=== PATIENT | male | born 1940 | race Caucasian/White ===

== ENCOUNTER 2017-09-01 05:59 | Inpatient (IN) | payer MEDICARE, OTHER ==
[~2017-09-01] VITALS: Ht 167.6 cm; Wt 64.4 kg
[~2017-09-01 05:59] MED LIST: ASPIRIN81 MG ORAL; CLONIDINE 0.2M0.2 MG PO; DIABETA5 MG ORAL; LISINOPRIL10 MG ORAL; METFORMIN HCL500 M1 ORAL; METFORMIN HCL850 M1 ORAL
--- NOTE | 2017-09-01 06:17 | Emergency Room Report ---
History of Present Illness General Chief Complaint: Dizziness Source: Patient Present Illness HPI Is a 77-year-old male with a history diabetes. He woke up this morning complaining of dizziness and lightheadedness. No nausea no vomiting. No fever or chills. Also with generalize weakness. This is new to him. Denies any other complaint. History is difficult because he is a poor historian. Per his , patient has fever has been coughing for about a week. Worse tonight. Very weak. Allergies: Coded Allergies: PENICILLIN G (Verified Allergy, Mild, 12/26/10) Patient History Past Medical History: see triage record, old chart reviewed, DM Past Surgical History: other Pertinent Family History: none Social History: Denies: smoking Immunizations: other Reviewed Nursing Documentation: PMH: Agreed, PSxH: Agreed Nursing Documentation-PMH Hx Cardiac Problems: Yes Hx Hypertension: Yes Hx Diabetes: Yes Hx Cancer: No Hx Gastrointestinal Problems: Yes Hx Neurological Problems: No Review of Systems Eye: Denies: eye pain, blurred vision ENT: Denies: ear pain, nose congestion, throat swelling Respiratory: Reports: cough, shortness of breath Cardiovascular: Denies: chest pain, palpitations Gastrointestinal: Denies: abdominal pain, diarrhea, nausea, vomiting Musculoskeletal: Denies: back pain, joint pain Skin: Denies: rash Neurological: Reports: dizziness, Denies: headache, numbness Endocrine: Denies: increased thirst, increased urine Hematologic/Lymphatic: Denies: easy bruising All Other Systems: negative except mentioned in HPI Physical Exam Vital Signs Date Time Temp Pulse Resp B/P (MAP) Pulse Ox O2 Delivery O2 Flow Rate FiO2 09/01/17 06:07 99.7 104 18 190/87 92 Room Air vitals with tachycardia Sp02 EP Interpretation: abnormal General Appearance: mild distress, other - Appeared weak Head: normocephalic, atraumatic Eyes: bilateral eye PERRL, bilateral eye EOMI ENT: hearing grossly normal, normal pharynx Neck: full range of motion, supple, no meningismus Respiratory: chest non-tender, crackles Cardiovascular #1: regular rate, rhythm, no murmur Gastrointestinal: normal bowel sounds, non tender, no mass, no organomegaly, no bruit, non-distended Musculoskeletal: back normal, normal range of motion Psychiatric: mood/affect normal Skin: warm/dry Medical Decision Making Diagnostic Impression: Primary Impression: Sepsis Qualified Codes: A41.9 - Sepsis, unspecified organism Additional Impressions: Encephalopathy acute Pneumonia Qualified Codes: J18.1 - Lobar pneumonia, unspecified organism ER Course Patient presents with weakness, cough, fever and chest x-ray concerning for pneumonia. Antibiotics given. Labs pending. I will sign this patient out to Dr. Montgomery for final disposition. Most likely admission versus transfer. EKG Diagnostic Results Rate: normal, tachycardiac Rhythm: NSR ST Segments: no acute changes Rhythm Strip Diag. Results Rhythm Strip Time: 06:28 EP Interpretation: yes Rate: 100 Rhythm: NSR, no PVC's, no ectopy Chest X-Ray Diagnostic Results Chest X-Ray Diagnostic Results : Chest X-Ray Ordered: Yes # of Views/Limited/Complete: 1 View Indication: Shortness of Breath EP Interpretation: Yes Interpretation: no effusion, no pneumothorax, other - Increased interstitial markings Impression: Other - Interstitial infiltrate Electronically Signed by: Electronically signed by Maninder Issa MD Last Vital Signs Date Time Temp Pulse Resp B/P (MAP) Pulse Ox O2 Delivery O2 Flow Rate FiO2 09/01/17 06:07 99.7 104 18 190/87 92 Room Air Status: improved Disposition: ADMITTED INPATIENT Condition: Serious MANINDER ISSA M.D. Sep 01, 2017 06:17
[2017-09-01] MEDS ORDERED: Acetaminophen 500mg (ES) tab ORAL ONE (06:30)
[2017-09-01] MEDS ORDERED: NS 1000ml 1,900 ML IVLG ONE (06:30)
[2017-09-01 06:32] VITALS: BP 167/69
[2017-09-01] MEDS ORDERED: cefTRIAXone 1 GM in NS 55 ML IVPB ONE (06:45)
[2017-09-01] MEDS ORDERED: Azithromycin 500 MG in NS 275 ML IV ONE (06:45)
[2017-09-01 07:09] LABS: PROTHROMBIN TIME 10.9 SEC (9.30-11.50)
[2017-09-01 07:10] LABS: MEAN CORPUSCULAR HGB CONC 33.8 G/DL (32.0-36.0); MEAN CORPUSCULAR VOLUME 98 FL (80-99); PLATELET COUNT 242 K/UL (150-450); RED BLOOD COUNT 4.27 M/UL (4.70-6.10); RED CELL DISTRIBUTION WIDTH 12.4 % (11.6-14.8)
[2017-09-01 07:30] LABS: ALANINE AMINOTRANSFERASE 18 U/L (12-78); ALBUMIN/GLOBULIN RATIO 1.1 (1.0-2.7); ANION GAP 11 (5-15); ASPARTATE AMINO TRANSFERASE 18 U/L (15-37); CALCIUM 9.8 MG/DL (8.5-10.1); CARBON DIOXIDE 25 MMOL/L (21-32); CHLORIDE 101 MMOL/L (98-107); CREATININE 2.3 MG/DL (0.55-1.30); POTASSIUM 4.6 MMOL/L (3.5-5.1); SODIUM 137 MMOL/L (136-145); TOTAL PROTEIN 8.2 G/DL (6.4-8.2)
[2017-09-01] MEDS ORDERED: JANUVIA50 MG ORAL (07:35)
[2017-09-01] MEDS ORDERED: GLIPIZIDE XL10 MG ORAL (07:35)
[2017-09-01 07:43] LABS: APPEARANCE,URINE CLEAR; KETONES,URINE NEGATIVE (NEGATIVE); LEUKOCYTE ESTERASE ,URINE NEGATIVE (NEGATIVE); NITRITE,URINE NEGATIVE (NEGATIVE); PH,URINE 7 (4.5-8.0); PROTEIN,URINE 3+ (NEGATIVE); UROBILINOGEN,URINE NORMAL MG/DL (0.0-1.0)
[2017-09-01] MEDS ORDERED: Azithromycin 500mg Inj IV ONE (07:50)
[2017-09-01 07:54] LABS: BACTERIA,URINE FEW /HPF; SQUAMOUS EPITHELIAL CELL,UR OCCASIONAL /LPF (NONE/OCC); WBC,URINE 0-2 /HPF (0 - 0)
[2017-09-01] MEDS ORDERED: Azithromycin 500 MG in D5W 275 ML IV ONE (08:00)
[2017-09-01 08:01] LABS: BAND NEUTROPHILS % (MANUAL) 5 % (0-8); BASOPHILS % (MANUAL) 0 % (0-2); EOSINOPHILS % (MANUAL) 0 % (0-3); LYMPHOCYTES % (MANUAL) 2 % (20-45); NEUTROPHILS % (MANUAL) 92 % (45-75); PLATELET ESTIMATE ADEQUATE; PLATELET MORPHOLOGY NORMAL; TOTAL CELLS COUNTED 100
[2017-09-01 08:09] VITALS: BP 109/67
[2017-09-01] MEDS ORDERED: Miralax 17gm pkt ORAL PRN ×2 (08:15→15:30)
[2017-09-01] MEDS ORDERED: Promethazine/Codeine 5ml UD ORAL PRN ×2 (08:15→16:15)
[2017-09-01] MEDS ORDERED: Morphine Sulfate 4mg/ml Inj IVP PRN ×2 (08:15→16:15)
[2017-09-01] MEDS ORDERED: Albuterol/Ipratropium 3ml neb HHN PRN ×2 (08:15→16:15)
[2017-09-01] MEDS ORDERED: LORazepam Inj 2mg/ml 1ml IV PRN ×2 (08:15→16:15)
--- NOTE | 2017-09-01 08:17 | Emergency Room Report ---
History of Present Illness General Chief Complaint: Dizziness Source: Patient Present Illness Allergies: Coded Allergies: PENICILLIN G (Verified Allergy, Mild, 12/26/10) Nursing Documentation-PMH Hx Cardiac Problems: Yes Hx Hypertension: Yes Hx Diabetes: Yes Hx Cancer: No Hx Gastrointestinal Problems: Yes Hx Neurological Problems: No Physical Exam Vital Signs Date Time Temp Pulse Resp B/P (MAP) Pulse Ox O2 Delivery O2 Flow Rate FiO2 09/01/17 06:07 99.7 104 18 190/87 92 Room Air Medical Decision Making Diagnostic Impression: Primary Impression: Pneumonia Qualified Codes: J18.1 - Lobar pneumonia, unspecified organism Additional Impressions: Sepsis Qualified Codes: A41.9 - Sepsis, unspecified organism Hypoxia ER Course Patient presents with reports as noted on initial history and exam by initial provider At this time patient feel significantly improved Patient was hypoxic upon presentation and requires oxygenation Blood work reveals high white blood cell count x-ray does not show any obvious large infiltrate however clinically the patient does present with sepsis and pneumonia Patient was provided with antibiotics and requires further inpatient care Labs Test 09/01/17 06:50 09/01/17 07:24 White Blood Count 16.0 K/UL (4.8-10.8) Red Blood Count 4.27 M/UL (4.70-6.10) Hemoglobin 14.1 G/DL (14.2-18.0) Hematocrit 41.6 % (42.0-52.0) Mean Corpuscular Volume 98 FL (80-99) Mean Corpuscular Hemoglobin 33.0 PG (27.0-31.0) Mean Corpuscular Hemoglobin Concent 33.8 G/DL (32.0-36.0) Red Cell Distribution Width 12.4 % (11.6-14.8) Platelet Count 242 K/UL (150-450) Mean Platelet Volume 11.0 FL (6.5-10.1) Neutrophils (%) (Auto) % (45.0-75.0) Lymphocytes (%) (Auto) % (20.0-45.0) Monocytes (%) (Auto) % (1.0-10.0) Eosinophils (%) (Auto) % (0.0-3.0) Basophils (%) (Auto) % (0.0-2.0) Differential Total Cells Counted 100 Neutrophils % (Manual) 92 % (45-75) Lymphocytes % (Manual) 2 % (20-45) Monocytes % (Manual) 1 % (1-10) Eosinophils % (Manual) 0 % (0-3) Basophils % (Manual) 0 % (0-2) Band Neutrophils 5 % (0-8) Platelet Estimate Adequate Platelet Morphology Normal Red Blood Cell Morphology Normal Prothrombin Time 10.9 SEC (9.30-11.50) Prothromb Time International Ratio 1.0 (0.9-1.1) Activated Partial Thromboplast Time 23 SEC (23-33) Sodium Level 137 MMOL/L (136-145) Potassium Level 4.6 MMOL/L (3.5-5.1) Chloride Level 101 MMOL/L (98-107) Carbon Dioxide Level 25 MMOL/L (21-32) Anion Gap 11 (5-15) Blood Urea Nitrogen 42 mg/dL (7-18) Creatinine 2.3 MG/DL (0.55-1.30) Estimat Glomerular Filtration Rate mL/min (>60) Glucose Level 231 MG/DL (74-106) Calcium Level 9.8 MG/DL (8.5-10.1) Total Bilirubin 0.5 MG/DL (0.2-1.0) Aspartate Amino Transf (AST/SGOT) 18 U/L (15-37) Alanine Aminotransferase (ALT/SGPT) 18 U/L (12-78) Alkaline Phosphatase 94 U/L (46-116) Total Creatine Kinase 73 U/L (26-308) Creatine Kinase MB 1.0 NG/ML (0.0-3.6) Creatine Kinase MB Relative Index 1.3 Troponin I 0.000 ng/mL (0.000-0.056) Pro-B-Type Natriuretic Peptide 735 (0-125) Total Protein 8.2 G/DL (6.4-8.2) Albumin 4.3 G/DL (3.4-5.0) Globulin 3.9 g/dL Albumin/Globulin Ratio 1.1 (1.0-2.7) Urine Color Pale yellow Urine Appearance Clear Urine pH 7 (4.5-8.0) Urine Specific [place] 1.005 (1.005-1.035) Urine Protein 3+ (NEGATIVE) Urine Glucose (UA) 2+ (NEGATIVE) Urine Ketones Negative (NEGATIVE) Urine Occult Blood 1+ (NEGATIVE) Urine Nitrite Negative (NEGATIVE) Urine Bilirubin Negative (NEGATIVE) Urine Urobilinogen Normal MG/DL (0.0-1.0) Urine Leukocyte Esterase Negative (NEGATIVE) Urine RBC 2-4 /HPF (0 - 0) Urine WBC 0-2 /HPF (0 - 0) Urine Squamous Epithelial Cells Occasional /LPF Urine Bacteria Few /HPF (NONE) Rhythm Strip Diag. Results EP Interpretation: yes Rate: 88 Rhythm: NSR, no PVC's, no ectopy Chest X-Ray Diagnostic Results Chest X-Ray Diagnostic Results : Chest X-Ray Ordered: Yes # of Views/Limited/Complete: 1 View Indication: Chest Pain EP Interpretation: Yes Interpretation: no consolidation, no pneumothorax, other - Small parahilar markings, right lower lobe small effusion Impression: Other - ssmall effusion right-sided Last Vital Signs Date Time Temp Pulse Resp B/P (MAP) Pulse Ox O2 Delivery O2 Flow Rate FiO2 09/01/17 08:09 100.2 82 20 109/67 94 Room Air Status: improved Disposition: ADMITTED INPATIENT Condition: Serious Referrals: NOT CHOSEN REBEKAH/,REFERRING (PCP) INA JAMES D.O. Sep 01, 2017 08:17
--- NOTE | 2017-09-01 08:47 | Diagnostic Imaging Report ---
Indication: DIZZY Comparison: 11/20/2012 CT brain Technique: Contiguous helical CT images of the brain was performed with [address] dose: Total DLP: 1354 mGycm; CTDI volume: 70.4 mGy Findings: There is no acute intracranial hemorrhage or infarct. No mass, mass effect or midline shift identified. Ventricles and sulci are prominent secondary to global cortical atrophy. There are no extra-axial fluid collections seen. Periventricular chronic ischemic changes are noted. Bony calvarium is intact. Mastoid air cells and visualized paranasal sinuses are clear. 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 Impression: 1. No acute intracranial abnormalities. 2. Global cortical atrophy with periventricular chronic ischemic changes. 3. No significant change from prior exam 11/20/[address] scanner at [facility] is accredited by the [employer] and the scans are performed using protocols designed to limit radiation exposure to as low as reasonably achievable to attain images of sufficient resolution adequate for diagnostic evaluation.
--- NOTE | 2017-09-01 08:48 | Diagnostic Imaging Report ---
Indication: DIZZY Comparison: 01/31/2010 Findings: Single view of the chest shows a normal cardiomediastinal silhouette. Pulmonary vasculature is normal. Lung are clear. Soft tissues and osseous structures are within normal limits. Impression: No acute chest disease
[2017-09-01] MEDS ORDERED: Aspirin Baby 81mg ORAL SCH (09:00)
[2017-09-01] MEDS ORDERED: Heparin 5000 units/ml inj SUBQ SCH (09:00)
--- NOTE | 2017-09-01 09:17 | Infectious Diseases Prog Note ---
Assessment/Plan Problems: (1) Pneumonia Assessment & Plan: possible aspiration , will start ceftaroline, aztreonam and flagyl, and screen for influenza, monitor CXR (2) Sepsis Assessment & Plan: due to the above , send blood culture, continue antibiotics (3) Hypoxia Assessment & Plan: not explained by his CXR , need to rule out other causes, such as PE, pulmonary is following Subjective Allergies: Coded Allergies: PENICILLIN G (Verified Allergy, Mild, 12/26/10) Objective Vital Signs Last 24 Hour Vital Signs Date Time Temp Pulse Resp B/P (MAP) Pulse Ox O2 Delivery O2 Flow Rate FiO2 09/01/17 09:02 88 20 109/55 93 Nasal Cannula 3.0 09/01/17 08:09 100.2 82 20 109/67 94 Room Air 09/01/17 07:52 100.2 09/01/17 06:32 100.1 94 18 167/69 92 Room Air 09/01/17 06:07 99.7 104 18 190/87 92 Room Air Height (Feet): 5 Height (Inches): 6.00 Weight (Pounds): 142 Laboratory Tests Test 09/01/17 06:50 09/01/17 07:24 White Blood Count 16.0 K/UL (4.8-10.8) H Red Blood Count 4.27 M/UL (4.70-6.10) L Hemoglobin 14.1 G/DL (14.2-18.0) L Hematocrit 41.6 % (42.0-52.0) L Mean Corpuscular Volume 98 FL (80-99) Mean Corpuscular Hemoglobin 33.0 PG (27.0-31.0) H Mean Corpuscular Hemoglobin Concent 33.8 G/DL (32.0-36.0) Red Cell Distribution Width 12.4 % (11.6-14.8) Platelet Count 242 K/UL (150-450) Mean Platelet Volume 11.0 FL (6.5-10.1) H Neutrophils (%) (Auto) % (45.0-75.0) Lymphocytes (%) (Auto) % (20.0-45.0) Monocytes (%) (Auto) % (1.0-10.0) Eosinophils (%) (Auto) % (0.0-3.0) Basophils (%) (Auto) % (0.0-2.0) Differential Total Cells Counted 100 Neutrophils % (Manual) 92 % (45-75) H Lymphocytes % (Manual) 2 % (20-45) L Monocytes % (Manual) 1 % (1-10) Eosinophils % (Manual) 0 % (0-3) Basophils % (Manual) 0 % (0-2) Band Neutrophils 5 % (0-8) Platelet Estimate Adequate Platelet Morphology Normal Red Blood Cell Morphology Normal Prothrombin Time 10.9 SEC (9.30-11.50) Prothromb Time International Ratio 1.0 (0.9-1.1) Activated Partial Thromboplast Time 23 SEC (23-33) Sodium Level 137 MMOL/L (136-145) Potassium Level 4.6 MMOL/L (3.5-5.1) Chloride Level 101 MMOL/L (98-107) Carbon Dioxide Level 25 MMOL/L (21-32) Anion Gap 11 (5-15) Blood Urea Nitrogen 42 mg/dL (7-18) H Creatinine 2.3 MG/DL (0.55-1.30) H Estimat Glomerular Filtration Rate mL/min (>60) Glucose Level 231 MG/DL (74-106) H Calcium Level 9.8 MG/DL (8.5-10.1) Total Bilirubin 0.5 MG/DL (0.2-1.0) Aspartate Amino Transf (AST/SGOT) 18 U/L (15-37) Alanine Aminotransferase (ALT/SGPT) 18 U/L (12-78) Alkaline Phosphatase 94 U/L (46-116) Total Creatine Kinase 73 U/L (26-308) Creatine Kinase MB 1.0 NG/ML (0.0-3.6) Creatine Kinase MB Relative Index 1.3 Troponin I 0.000 ng/mL (0.000-0.056) Pro-B-Type Natriuretic Peptide 735 (0-125) H Total Protein 8.2 G/DL (6.4-8.2) Albumin 4.3 G/DL (3.4-5.0) Globulin 3.9 g/dL Albumin/Globulin Ratio 1.1 (1.0-2.7) Urine Color Pale yellow Urine Appearance Clear Urine pH 7 (4.5-8.0) Urine Specific [place] 1.005 (1.005-1.035) Urine Protein 3+ (NEGATIVE) H Urine Glucose (UA) 2+ (NEGATIVE) H Urine Ketones Negative (NEGATIVE) Urine Occult Blood 1+ (NEGATIVE) H Urine Nitrite Negative (NEGATIVE) Urine Bilirubin Negative (NEGATIVE) Urine Urobilinogen Normal MG/DL (0.0-1.0) Urine Leukocyte Esterase Negative (NEGATIVE) Urine RBC 2-4 /HPF (0 - 0) H Urine WBC 0-2 /HPF (0 - 0) Urine Squamous Epithelial Cells Occasional /LPF Urine Bacteria Few /HPF (NONE) Current Medications Medications (Trade) Dose Ordered Sig/Reuben Route PRN Reason Start Time Stop Time Status Last Admin Dose Admin Acetaminophen (Tylenol) 650 mg Q4H PRN ORAL FEVER 09/01/17 08:15 10/01/17 08:14 Albuterol/ Ipratropium (DuoNeb 0.5-3(2.5)mg/3ml) 3 ml Q4H PRN HHN Shortness of Breath 09/01/17 08:15 09/06/17 08:14 Aspirin (ASA) 81 mg DAILY ORAL 09/01/17 09:00 10/01/17 08:59 Azithromycin (Zithromax) 250 mg DAILY ORAL 09/02/17 09:00 09/09/17 08:59 UNV Ceftriaxone Sodium 2 gm/ Dextrose 110 ml @ 220 mls/hr Q24H IVPB 09/01/17 09:15 09/08/17 09:14 UNV Dextrose (Dextrose 50%) STAT PRN IV Hypoglycemia 09/01/17 08:15 10/01/17 08:14 Dextrose (Dextrose 50%) STAT PRN IV Hypoglycemia 09/01/17 08:15 10/01/17 08:14 Heparin Sodium (Porcine) (Heparin 5000 units/ml) 5,000 units EVERY 12 HOURS SUBQ 09/01/17 09:00 10/01/17 08:59 Insulin Aspart (NovoLOG) BEFORE MEALS AND HS SUBQ 09/01/17 11:30 10/01/17 11:29 Lorazepam (Ativan 2mg/ml 1ml) 2 mg Q2H PRN IV For Anxiety 09/01/17 08:15 09/08/17 08:14 Morphine Sulfate (Morphine Sulfate) 4 mg Q4H PRN IVP Severe Pain (Pain Scale 7-10) 09/01/17 08:15 09/08/17 08:14 Ondansetron HCl (Zofran) 4 mg Q6H PRN IVP Nausea & Vomiting 09/01/17 08:15 10/01/17 08:14 Polyethylene Glycol (Miralax) 17 gm DAILYPRN PRN ORAL Constipation 09/01/17 08:15 10/01/17 08:14 Promethazine HCl/ Codeine (Phenergan with Codeine) 5 ml Q4H PRN ORAL For Cough 09/01/17 08:15 10/01/17 08:14 Sitagliptin Phosphate (Januvia) 50 mg BIAC ORAL 09/01/17 16:30 10/01/17 16:29 Sodium Chloride 1,000 ml @ 50 mls/hr Q20H IV 09/01/17 09:00 10/01/17 08:59 Viktor Holland M.D. Sep 01, 2017 09:17
[2017-09-01] MEDS ORDERED: cefTRIAXone 2 GM in D5W 110 ML IVPB SCH (10:00)
[2017-09-01] MEDS ORDERED: Vancomycin 1 GM in D5W 275 ML IVPB ONE (10:00)
[2017-09-01 10:12] LABS: ABG BASE EXCESS -3.6; ABG PCO2 41.7 mmHg (35.0-45.0)
[2017-09-01 10:13] LABS: ABG ALLEN TEST POSITIVE
[2017-09-01 10:29] LABS: URIC ACID 7.3 MG/DL (2.6-7.2)
--- NOTE | 2017-09-01 10:56 | Consultation ---
History of Present Illness General Date patient seen: Sep 01, 2017 Time patient seen: 10:00 Chief Complaint: Dizziness Referring physician: dr Banegas Reason for Consultation: pulmonary consult Present Illness HPI 77-year-old male with PMH of DM, HTN woke up this am with dizziness, generalized weakness and lightheadedness, denied n/v/ denied f/c/ upon evaluation in ED found to ne hypoxemic, febrile, with leukocytosis troponin negative ECG with NSR no acute ischemic changes pro BNP -735 UA negative CXR revealed no acute CP pathology BP was elevated -190/87 CT head subsequently done, no acute intracranial pathology BS was stable BUN/creat- 42/2.3 respectively on clinical examination with evidence of possible PNA patient was admitted for further management on MS flooe sustained episode of respiratory distress, desaturation, was placed on 100% NRM and was subsequently transferred to [facility] Allergies: Coded Allergies: PENICILLIN G (Verified Allergy, Mild, 12/26/10) Medication History Scheduled Aspirin* (Aspirin*), 81 MG ORAL DAILY, (Reported) Clonidine HCl (Clonidine HCl), 0.2 MG PO TID, (Reported) Glipizide (Glipizide), 5 MG ORAL TWICE A DAY, (Reported) Glyburide* (Diabeta*), 5 MG ORAL BIAC, (Reported) Lisinopril* (Lisinopril*), 10 MG ORAL DAILY, (Reported) Metformin Hcl* (Metformin Hcl*), 500 MG ORAL THREE TIMES A DAY, (Reported) Sitagliptin (Januvia), 50 MG ORAL TWICE A DAY, (Reported) Patient History Healthcare decision maker Resuscitation status Advanced Directive on File Past Medical/Surgical History Past Medical/Surgical History: (1) Diabetes (2) HTN (hypertension) Review of Systems Constitutional: Reports: weakness Eye: Reports: no symptoms ENT: Reports: no symptoms Respiratory: Reports: see HPI Cardiovascular: Reports: no symptoms, other - HTN Gastrointestinal: Reports: no symptoms Genitourinary: Reports: no symptoms Musculoskeletal: Reports: no symptoms Skin: Reports: no symptoms Psychiatric: Reports: no symptoms Neurological: Reports: see HPI, other Endocrine: Reports: other - diabetes Hematologic/Lymphatic: Reports: no symptoms Physical Exam General Appearance: no apparent distress, alert - awake, responsive Lines, tubes and drains: peripheral HEENT: normocephalic, atraumatic, anicteric, mucous membranes moist Neck: non-tender, supple Respiratory/Chest: no accessory muscle use, other - coarse BS Cardiovascular/Chest: normal peripheral pulses, normal rate, regular rhythm, no JVD Abdomen: normal bowel sounds, non tender, soft Neurologic: no motor/sensory deficits, alert, responsive, normal mood/affect Musculoskeletal: normal muscle bulk Last 24 Hour Vital Signs Date Time Temp Pulse Resp B/P (MAP) Pulse Ox O2 Delivery O2 Flow Rate FiO2 09/01/17 09:02 88 20 109/55 93 Nasal Cannula 3.0 09/01/17 08:09 100.2 82 20 109/67 94 Room Air 09/01/17 07:52 100.2 09/01/17 06:32 100.1 94 18 167/69 92 Room Air 09/01/17 06:07 99.7 104 18 190/87 92 Room Air Intake and Output 09/01/17 09/02/17 19:00 07:00 Intake Total 2330 ml Balance 2330 ml IV Total 2330 ml # Voids 1 Laboratory Tests Test 09/01/17 06:50 09/01/17 07:24 09/01/17 09:30 09/01/17 09:52 White Blood Count 16.0 K/UL (4.8-10.8) H Red Blood Count 4.27 M/UL (4.70-6.10) L Hemoglobin 14.1 G/DL (14.2-18.0) L Hematocrit 41.6 % (42.0-52.0) L Mean Corpuscular Volume 98 FL (80-99) Mean Corpuscular Hemoglobin 33.0 PG (27.0-31.0) H Mean Corpuscular Hemoglobin Concent 33.8 G/DL (32.0-36.0) Red Cell Distribution Width 12.4 % (11.6-14.8) Platelet Count 242 K/UL (150-450) Mean Platelet Volume 11.0 FL (6.5-10.1) H Neutrophils (%) (Auto) % (45.0-75.0) Lymphocytes (%) (Auto) % (20.0-45.0) Monocytes (%) (Auto) % (1.0-10.0) Eosinophils (%) (Auto) % (0.0-3.0) Basophils (%) (Auto) % (0.0-2.0) Differential Total Cells Counted 100 Neutrophils % (Manual) 92 % (45-75) H Lymphocytes % (Manual) 2 % (20-45) L Monocytes % (Manual) 1 % (1-10) Eosinophils % (Manual) 0 % (0-3) Basophils % (Manual) 0 % (0-2) Band Neutrophils 5 % (0-8) Platelet Estimate Adequate Platelet Morphology Normal Red Blood Cell Morphology Normal Prothrombin Time 10.9 SEC (9.30-11.50) Prothromb Time International Ratio 1.0 (0.9-1.1) Activated Partial Thromboplast Time 23 SEC (23-33) Sodium Level 137 MMOL/L (136-145) Potassium Level 4.6 MMOL/L (3.5-5.1) Chloride Level 101 MMOL/L (98-107) Carbon Dioxide Level 25 MMOL/L (21-32) Anion Gap 11 (5-15) Blood Urea Nitrogen 42 mg/dL (7-18) H Creatinine 2.3 MG/DL (0.55-1.30) H Estimat Glomerular Filtration Rate mL/min (>60) Glucose Level 231 MG/DL (74-106) H Calcium Level 9.8 MG/DL (8.5-10.1) Total Bilirubin 0.5 MG/DL (0.2-1.0) Aspartate Amino Transf (AST/SGOT) 18 U/L (15-37) Alanine Aminotransferase (ALT/SGPT) 18 U/L (12-78) Alkaline Phosphatase 94 U/L (46-116) Total Creatine Kinase 73 U/L (26-308) 77 U/L (26-308) Creatine Kinase MB 1.0 NG/ML (0.0-3.6) Creatine Kinase MB Relative Index 1.3 Troponin I 0.000 ng/mL (0.000-0.056) Pro-B-Type Natriuretic Peptide 735 (0-125) H Total Protein 8.2 G/DL (6.4-8.2) Albumin 4.3 G/DL (3.4-5.0) Globulin 3.9 g/dL Albumin/Globulin Ratio 1.1 (1.0-2.7) Urine Color Pale yellow Urine Appearance Clear Urine pH 7 (4.5-8.0) Urine Specific [place] 1.005 (1.005-1.035) Urine Protein 3+ (NEGATIVE) H Urine Glucose (UA) 2+ (NEGATIVE) H Urine Ketones Negative (NEGATIVE) Urine Occult Blood 1+ (NEGATIVE) H Urine Nitrite Negative (NEGATIVE) Urine Bilirubin Negative (NEGATIVE) Urine Urobilinogen Normal MG/DL (0.0-1.0) Urine Leukocyte Esterase Negative (NEGATIVE) Urine RBC 2-4 /HPF (0 - 0) H Urine WBC 0-2 /HPF (0 - 0) Urine Squamous Epithelial Cells Occasional /LPF Urine Bacteria Few /HPF (NONE) Lactic Acid Level 0.80 mmol/L (0.66-2.22) Uric Acid 7.3 MG/DL (2.6-7.2) H Arterial Blood pH 7.330 (7.350-7.450) Arterial Blood Partial Pressure CO2 41.7 mmHg (35.0-45.0) Arterial Blood Partial Pressure O2 162.2 mmHg (75.0-100.0) H Arterial Blood HCO3 21.9 mmol/L (22.0-26.0) L Arterial Blood Oxygen Saturation 98.0 % (92.0-98.0) Arterial Blood Base Excess -3.6 Hiram Test Positive Height (Feet): 5 Height (Inches): 6.00 Weight (Pounds): 142 Medications Current Medications Medications (Trade) Dose Ordered Sig/Reuben Route PRN Reason Start Time Stop Time Status Last Admin Dose Admin Acetaminophen (Tylenol) 650 mg Q4H PRN ORAL FEVER 09/01/17 08:15 10/01/17 08:14 Albuterol/ Ipratropium (DuoNeb 0.5-3(2.5)mg/3ml) 3 ml Q4H PRN HHN Shortness of Breath 09/01/17 08:15 09/06/17 08:14 Albuterol/ Ipratropium (DuoNeb 0.5-3(2.5)mg/3ml) 3 ml Q6HRT HHN 09/01/17 13:00 09/06/17 12:59 Aspirin (ASA) 81 mg DAILY ORAL 09/01/17 09:00 10/01/17 08:59 Azithromycin (Zithromax) 250 mg DAILY ORAL 09/02/17 09:00 09/09/17 08:59 Ceftriaxone Sodium 2 gm/ Dextrose 110 ml @ 220 mls/hr Q24H IVPB 09/01/17 10:00 09/08/17 09:59 Dextrose (Dextrose 50%) STAT PRN IV Hypoglycemia 09/01/17 08:15 10/01/17 08:14 Dextrose (Dextrose 50%) STAT PRN IV Hypoglycemia 09/01/17 08:15 10/01/17 08:14 Heparin Sodium (Porcine) (Heparin 5000 units/ml) 5,000 units EVERY 12 HOURS SUBQ 09/01/17 09:00 10/01/17 08:59 Insulin Aspart (NovoLOG) BEFORE MEALS AND HS SUBQ 09/01/17 11:30 10/01/17 11:29 Lorazepam (Ativan 2mg/ml 1ml) 2 mg Q2H PRN IV For Anxiety 09/01/17 08:15 09/08/17 08:14 Morphine Sulfate (Morphine Sulfate) 4 mg Q4H PRN IVP Severe Pain (Pain Scale 7-10) 09/01/17 08:15 09/08/17 08:14 Ondansetron HCl (Zofran) 4 mg Q6H PRN IVP Nausea & Vomiting 09/01/17 08:15 10/01/17 08:14 Polyethylene Glycol (Miralax) 17 gm DAILYPRN PRN ORAL Constipation 09/01/17 08:15 10/01/17 08:14 Promethazine HCl/ Codeine (Phenergan with Codeine) 5 ml Q4H PRN ORAL For Cough 09/01/17 08:15 10/01/17 08:14 Sitagliptin Phosphate (Januvia) 50 mg BIAC ORAL 09/01/17 16:30 10/01/17 16:29 Sodium Chloride 1,000 ml @ 50 mls/hr Q20H IV 09/01/17 09:00 10/01/17 08:59 Assessment/Plan Assessment/Plan ASSESSMENT possible sepsis acute hypoxemic respiratory failure requiring NRM likely aspiration PNA ARF DM HTN dizziness PLAN OF CARE transfer to [facility] initially, now in tele O2 to keep sat above 92% was able to downgrade from NRM to O2 via NC, pulse oximetry stable pulmonary toilet: HHN ATC and prn and CPT empiric abx for aspiration PNA ( discussed with ID) fup with cx ABG ( done on 100% NRM), - no hypercapnia fu with CXR in am swallow eval in am IVF renal US, monitor renal parameters, lytes, avoid nephrotoxics BS management with Januvia ( patient declined SSI), check HgA1c DVT GI prophylaxis dizziness ? 2 to elevated BP vs infection? CT head negative, BS stable consider neuro eval-per PMD discretion case discussed and evaluated by supervising physician Jose Parra),Umu COLLINS Sep 01, 2017 10:56
[2017-09-01] MEDS ORDERED: NovoLOG Insulin Flexpen SUBQ SCH (11:30)
[2017-09-01 12:00] VITALS: BP 108/62
[2017-09-01] MEDS ORDERED: Ceftaroline 300 MG in NS 55 ML IVPB SCH (12:00)
[2017-09-01 12:03] LABS: APPEARANCE,URINE CLEAR; KETONES,URINE NEGATIVE (NEGATIVE); LEUKOCYTE ESTERASE ,URINE NEGATIVE (NEGATIVE); NITRITE,URINE NEGATIVE (NEGATIVE); PH,URINE 6 (4.5-8.0); PROTEIN,URINE 3+ (NEGATIVE); UROBILINOGEN,URINE NORMAL MG/DL (0.0-1.0)
[2017-09-01 12:20] LABS: BACTERIA,URINE OCCASIONAL /HPF; RBC,URINE 0-2 /HPF (0 - 0); SQUAMOUS EPITHELIAL CELL,UR OCCASIONAL /LPF (NONE/OCC); WBC,URINE 0-2 /HPF (0 - 0)
[2017-09-01] MEDS ORDERED: Albuterol/Ipratropium 3ml neb HHN SCH (13:00)
[2017-09-01] MEDS ORDERED: Aztreonam Inj 1 GM in D5W 55 ML IVPB SCH (14:00)
[2017-09-01] MEDS ORDERED: Aztreonam Inj 1 GM in NS 50 ML IVPB SCH (14:00)
[2017-09-01 16:24] VITALS: BP 105/58
[2017-09-01] MEDS ORDERED: sitaGLIPtin 50mg tab ORAL SCH (16:30)
[2017-09-01] MEDS: NovoLOG Insulin Flexpen SUBQ SCH ×2 (16:30→21:00)
[2017-09-01] MEDS: sitaGLIPtin 50mg tab ORAL SCH (16:44)
--- NOTE | 2017-09-01 17:30 | History and Physical Report ---
DATE OF ADMISSION: 09/01/2017 TIME SEEN: 10 a.m. ATTENDING PHYSICIAN: Uche Banegas D.O. CONSULTANTS: 1. Maliha Will M.D. 2. Dr. Sands. 3. Jared Molina M.D. CHIEF COMPLAINT: Shortness of breath, coughing, fever, pneumonia, and sepsis. BRIEF HISTORY: This is a 77-year-old male, who lives at home, presents with two-day increased cough and shortness of breath, became like slightly confused and weak, came to [place], diagnosed with pneumonia and sepsis, admitted to medical floor for further treatment. Currently calm, O2, pulmonary treatment, slight short of breath in bed. No complaints. PAST MEDICAL HISTORY: Include diabetes and hypertension. PAST SURGICAL HISTORY: Unknown. MEDICATIONS: Include Zithromax, Januvia, NovoLog, ceftriaxone, aspirin, heparin, Phenergan with codeine, MiraLAX, morphine, Tylenol, and DuoNeb. ALLERGIES: Penicillin. SOCIAL HISTORY: No smoking. No alcohol. No intravenous drug abuse. FAMILY HISTORY: Noncontributory. REVIEW OF SYSTEMS: No chest pain. Slight short of breath. No nausea, vomiting, or diarrhea. PHYSICAL EXAMINATION: GENERAL: Calm in bed, oriented x2, no distress. VITAL SIGNS: Temperature is 100.2 degrees, pulse 88, respirations 20, and blood pressure 109/55. CARDIOVASCULAR: No murmur. LUNGS: Poor air exchange. ABDOMEN: Bowel sounds are positive. Nontender and nondistended. EXTREMITIES: No cyanosis, clubbing, or edema. NEUROLOGIC: The patient moves all extremities, but slightly weak. LABORATORY DATA: White count 16, hemoglobin and hematocrit 14/41, and platelet 242,000. BMP shows BUN and creatinine 42/2.3, glucose 231. INR is 1.0 and PTT 23. Urinalysis, 1+ occult blood, 2+ protein, otherwise normal. ASSESSMENT: 1. Pneumonia. 2. Sepsis. 3. Shortness of breath. 4. Fever. 5. Diabetes. 6. Hypertension. 7. Leukocytosis. 8. Renal failure. PLAN: 1. Continue premedications. 2. O2 and pulmonary treatment. 3. Antibiotics per Infectious Diseases. 4. Blood pressure and blood sugar control. 5. Dietary followup. 6. Nephrology followup. 7. CBC and BMP in the morning. 8. Dr. Will, Dr. Sands, and Dr. Molina, to consult. Uche Banegas D.O. DR: QUIN JOB#: [id number] CC:
[2017-09-01] MEDS: Albuterol/Ipratropium 3ml neb HHN SCH (19:00)
[2017-09-01 20:00] VITALS: BP 112/54
[2017-09-01] MEDS: Heparin 5000 units/ml inj SUBQ SCH (20:21)
--- NOTE | 2017-09-01 21:15 | Consultation ---
DATE OF CONSULTATION: INFECTIOUS DISEASE CONSULTATION CONSULTING PHYSICIAN: Viktor Holland M.D. REQUESTING PHYSICIAN: Uche Banegas D.O. REASON FOR CONSULTATION: Pneumonia, possible aspiration with sepsis, and acute respiratory failure. Recommendation for antibiotics therapy in a patient with penicillin allergy. HISTORY OF PRESENT ILLNESS: The patient is a 77-year-old male with past medical history of hypertension and diabetes, presented to the emergency room at [facility] with dizziness, weakness, and lightheadedness. The patient was found to be hypoxemic in the emergency room with fever and significant leukocytosis. Chest x-ray showed no acute infiltration, but his presentation was compatible with pneumonia. His urinalysis was negative, so the patient was started on antibiotics, empiric coverage and oxygen treatment and I was consulted by the primary provider for antibiotics treatment and further care since he is allergic to penicillin. The patient denied any recent travel or sick contact. Denied any recent upper respiratory infection. No chest pain or shortness of breath. No nausea, vomiting, or diarrhea. PAST MEDICAL HISTORY: Significant for diabetes and hypertension. PAST SURGICAL HISTORY: Negative. MEDICATIONS: The patient received ceftriaxone and Zithromax in the emergency room. For the rest of his medications, please refer to [facility]. ALLERGIES: He is allergic to penicillin, unclear what kind of reaction. FAMILY HISTORY: Not contributory. SOCIAL HISTORY: The patient lives with family. No recent drugs, tobacco, or alcohol abuse. REVIEW OF SYSTEMS: A 12-point of system reviewed were all negative apart from the one I mentioned above in my History and Physical. PHYSICAL EXAMINATION: VITAL SIGNS: Temperature 100.2 degrees, pulse 82, respirations 20, blood pressure 109/67, and saturation 94% on 4 liters nasal cannula. GENERAL: An elderly male, lying in bed, on high-flow oxygen, alert, not in acute distress, and unresponsive. HEENT: Normocephalic and atraumatic. Pupils are reactive to light. Moist oral mucosa. No exudate. NECK: Supple. No lymphadenopathy. CARDIOVASCULAR: He is tachycardic. S1 and S2 are normal. No murmur or gallop. LUNGS: Coarse breathing sounds at the bases with crackles. Normal breathing effort. No wheezing. ABDOMEN: Soft, nontender, and nondistended. Positive bowel sounds. No hepatosplenomegaly or ascites. EXTREMITY: No edema or cyanosis. LABORATORY DATA: Labs showed white count of 16,000, hemoglobin of 14.1, and platelet count of 242,000. BUN of 42 and creatinine of 2.3. Urinalysis showed 2 to 4 red blood cells, otherwise negative nitrite and negative leukocyte esterase. IMAGING: Chest x-ray showed no acute disease. Head CT scan showed no acute intracranial abnormalities and global cortical atrophy with periventricular chronic ischemic changes. ASSESSMENT AND RECOMMENDATIONS: 1. Pneumonia, possible aspiration. We will start the patient on ceftaroline, aztreonam, and Flagyl and screen him for influenza. Monitor chest x-ray. 2. Sepsis due to the above. We will send blood culture. Continue wide-spectrum antibiotics coverage. Pending culture results. 3. Hypoxemia, not explained by his chest x-ray, need to rule out other etiology such as pulmonary embolism. Pulmonary team is following. Continue oxygen replacement. Monitor in the step-down unit. 4. Diabetes. Recommend tight glycemic control to keep blood glucose between 80 to 130. Viktor Holland M.D. DR: [place] JOB#: [id number] CC:
[2017-09-01] MEDS: Aztreonam Inj 1 GM in D5W 55 ML IVPB SCH (21:18)
[2017-09-01] MEDS: Ceftaroline 300 MG in NS 55 ML IVPB SCH (23:28)
[2017-09-02 00:05] VITALS: BP 106/52
[2017-09-02] MEDS: Albuterol/Ipratropium 3ml neb HHN SCH ×4 (01:00→21:56)
[2017-09-02 04:34] VITALS: BP 115/60
[2017-09-02] MEDS: sitaGLIPtin 50mg tab ORAL SCH ×2 (06:17→18:25)
[2017-09-02] MEDS: Aztreonam Inj 1 GM in D5W 55 ML IVPB SCH ×3 (06:17→22:43)
[2017-09-02] MEDS: NovoLOG Insulin Flexpen SUBQ SCH ×4 (06:30→21:00)
[2017-09-02 08:50] LABS: MEAN CORPUSCULAR HEMOGLOBIN 33.8 PG (27.0-31.0); MEAN CORPUSCULAR HGB CONC 34.6 G/DL (32.0-36.0); MEAN CORPUSCULAR VOLUME 98 FL (80-99); MEAN PLATELET VOLUME 12.5 FL (6.5-10.1); PLATELET COUNT 188 K/UL (150-450); RED BLOOD COUNT 3.37 M/UL (4.70-6.10); RED CELL DISTRIBUTION WIDTH 12.8 % (11.6-14.8); WHITE BLOOD COUNT 21.3 K/UL (4.8-10.8)
[2017-09-02 08:52] VITALS: BP 124/55
[2017-09-02] MEDS ORDERED: Aspirin Baby 81mg ORAL SCH (09:00)
[2017-09-02] MEDS ORDERED: Azithromycin 250mg tab ORAL SCH ×2 (09:00)
[2017-09-02] MEDS: Heparin 5000 units/ml inj SUBQ SCH ×2 (09:02→21:00)
[2017-09-02 09:10] LABS: ANION GAP 11 (5-15); CALCIUM 8.7 MG/DL (8.5-10.1); CARBON DIOXIDE 23 MMOL/L (21-32); CHLORIDE 108 MMOL/L (98-107); CREATININE 1.9 MG/DL (0.55-1.30); PHOSPHORUS 2.8 MG/DL (2.5-4.9); POTASSIUM 4.5 MMOL/L (3.5-5.1); SODIUM 142 MMOL/L (136-145)
[2017-09-02 09:13] LABS: ANION GAP 8 (5-15); CALCIUM 8.7 MG/DL (8.5-10.1); CARBON DIOXIDE 25 MMOL/L (21-32); CHLORIDE 108 MMOL/L (98-107); CHOLESTEROL 120 MG/DL (< 200); CHOLESTEROL/HDL RATIO 2.2 (3.3-4.4); SODIUM 141 MMOL/L (136-145); THYROID STIMULATING HORMONE 0.655 uiU/mL (0.360-3.740)
[2017-09-02 09:56] LABS: BAND NEUTROPHILS % (MANUAL) 4 % (0-8); BASOPHILS % (MANUAL) 0 % (0-2); EOSINOPHILS % (MANUAL) 0 % (0-3); LYMPHOCYTES % (MANUAL) 10 % (20-45); NEUTROPHILS % (MANUAL) 82 % (45-75); PLATELET ESTIMATE ADEQUATE; PLATELET MORPHOLOGY NORMAL; TOTAL CELLS COUNTED 100
[2017-09-02 11:54] VITALS: BP 119/52
--- NOTE | 2017-09-02 12:05 | General Progress Note ---
Assessment/Plan Problem List: (1) Encephalopathy acute ICD Codes: G93.40 - Encephalopathy, unspecified SNOMED: 9514460 (2) Hypoxia ICD Codes: R09.02 - Hypoxemia SNOMED: 306225232, 84522566 (3) Sepsis ICD Codes: A41.9 - Sepsis, unspecified organism SNOMED: 70876059 Qualifiers: Qualified Codes: A41.9 - Sepsis, unspecified organism (4) Pneumonia ICD Codes: J18.9 - Pneumonia, unspecified organism SNOMED: 706231568 Qualifiers: Qualified Codes: J18.1 - Lobar pneumonia, unspecified organism (5) Diabetes ICD Codes: E11.9 - Type 2 diabetes mellitus without complications SNOMED: 67335088 (6) HTN (hypertension) ICD Codes: I10 - Essential (primary) hypertension SNOMED: 99562021 Status: stable, progressing, tolerating diet Assessment/Plan ot pt diet abx cbc bmp am Subjective Constitutional: Reports: weakness Allergies: Coded Allergies: PENICILLIN G (Verified Allergy, Mild, 12/26/10) All Systems: reviewed and negative except above Subjective sleepy calm Objective Last 24 Hour Vital Signs Date Time Temp Pulse Resp B/P (MAP) Pulse Ox O2 Delivery O2 Flow Rate FiO2 09/02/17 11:54 97.2 64 20 119/52 95 Nasal Cannula 09/02/17 08:52 97.5 68 20 124/55 95 Nasal Cannula 2.0 09/02/17 08:00 68 09/02/17 07:10 Nasal Cannula 09/02/17 07:10 Nasal Cannula 09/02/17 07:10 95 Nasal Cannula 2.0 28 09/02/17 05:40 70 20 96 Nasal Cannula 2.0 28 09/02/17 05:39 66 20 94 Nasal Cannula 2.0 28 09/02/17 04:34 97.0 64 20 115/60 95 Nasal Cannula 2.0 09/02/17 04:00 61 09/02/17 01:15 Nasal Cannula 09/02/17 01:15 Nasal Cannula 09/02/17 00:05 97.0 66 20 106/52 93 Room Air 09/02/17 00:00 65 09/01/17 20:18 Nasal Cannula 09/01/17 20:18 Nasal Cannula 09/01/17 20:00 97.6 67 20 112/54 95 Room Air 09/01/17 20:00 61 09/01/17 16:24 98.4 67 18 105/58 95 Room Air 09/01/17 16:00 61 09/01/17 14:41 88 20 96 Nasal Cannula 2.0 28 09/01/17 14:32 86 16 95 Nasal Cannula 2.0 28 09/01/17 14:32 86 16 Nasal Cannula 2.0 28 09/01/17 13:07 70 Intake and Output 09/02/17 09/03/17 19:00 07:00 Intake Total 120 ml Balance 120 ml Intake Oral 120 ml Laboratory Tests 09/02/17 07:40: White Blood Count 21.3H, Red Blood Count 3.37L, Hemoglobin 11.4L, Hematocrit 32.8L, Mean Corpuscular Volume 98, Mean Corpuscular Hemoglobin 33.8H, Mean Corpuscular Hemoglobin Concent 34.6, Red Cell Distribution Width 12.8, Platelet Count 188, Mean Platelet Volume 12.5H, Neutrophils (%) (Auto) , Lymphocytes (%) (Auto) , Monocytes (%) (Auto) , Eosinophils (%) (Auto) , Basophils (%) (Auto) , Differential Total Cells Counted 100, Neutrophils % (Manual) 82H, Lymphocytes % (Manual) 10L, Monocytes % (Manual) 4, Eosinophils % (Manual) 0, Basophils % ( Manual) 0, Band Neutrophils 4, Platelet Estimate Adequate, Platelet Morphology Normal, Sodium Level 141, Potassium Level 4.0, Chloride Level 108H, Carbon Dioxide Level 25, Anion Gap 8, Blood Urea Nitrogen 34H, Creatinine 2.0H, Estimat Glomerular Filtration Rate , Glucose Level 90, Hemoglobin A1c 8.7H, Calcium Level 8.7, Phosphorus Level 2.8, Albumin 2.8L, Triglycerides Level 37, Cholesterol Level 120, LDL Cholesterol 67, HDL Cholesterol 54, Cholesterol/HDL Ratio 2.2L, Thyroid Stimulating Hormone (TSH) 0.655 Height (Feet): 5 Height (Inches): 6.00 Weight (Pounds): 142 General Appearance: lethargic EENT: normal ENT inspection Neck: normal alignment Cardiovascular: normal peripheral pulses, normal rate, regular rhythm Respiratory/Chest: chest wall non-tender, lungs clear, normal breath sounds Abdomen: normal bowel sounds, non tender, soft Extremities: normal inspection Edema: no edema noted Arm (L), no edema noted Arm (R), no edema noted Leg (L), no edema noted Leg (R), no edema noted Pedal (L), no edema noted Pedal (R), no edema noted Generalized Neurologic: motor weakness Skin: normal pigmentation, warm/dry YOAN SALGUERO Sep 02, 2017 12:05
--- NOTE | 2017-09-02 12:11 | Diagnostic Imaging Report ---
Indication: SOB Technique: One view of the chest Comparison: none Findings: There is hazy opacity left lung base, may reflect some atelectasis and/or pleural fluid. The remainder of the lungs and pleural spaces are clear. Heart size is upper limits. Impression: Left basilar hazy opacity, may reflect atelectasis and/or pleural fluid. Acute process otherwise
[2017-09-02] MEDS: Ceftaroline 300 MG in NS 55 ML IVPB SCH (12:33)
--- NOTE | 2017-09-02 14:39 | Pulmonology Progress Note ---
Assessment/Plan Problems: (1) Sepsis (2) Encephalopathy acute (3) Diabetes (4) Hypoxia (5) HTN (hypertension) Assessment/Plan improving check cultures continue abx titrate fio2 to sat of 92% pt/ot med/surg if ok with cardio Subjective ROS Limited/Unobtainable: No Interval Events: feeling better Constitutional: Reports: no symptoms HEENT: Repors: no symptoms Respiratory: Reports: no symptoms Allergies: Coded Allergies: PENICILLIN G (Verified Allergy, Mild, 12/26/10) Objective Last 24 Hour Vital Signs Date Time Temp Pulse Resp B/P (MAP) Pulse Ox O2 Delivery O2 Flow Rate FiO2 09/02/17 12:50 Nasal Cannula 09/02/17 12:50 Nasal Cannula 09/02/17 12:00 75 09/02/17 11:54 97.2 64 20 119/52 95 Nasal Cannula 09/02/17 08:52 97.5 68 20 124/55 95 Nasal Cannula 2.0 09/02/17 08:00 68 09/02/17 07:10 Nasal Cannula 09/02/17 07:10 Nasal Cannula 09/02/17 07:10 95 Nasal Cannula 2.0 28 09/02/17 05:40 70 20 96 Nasal Cannula 2.0 28 09/02/17 05:39 66 20 94 Nasal Cannula 2.0 28 09/02/17 04:34 97.0 64 20 115/60 95 Nasal Cannula 2.0 09/02/17 04:00 61 09/02/17 01:15 Nasal Cannula 09/02/17 01:15 Nasal Cannula 09/02/17 00:05 97.0 66 20 106/52 93 Room Air 09/02/17 00:00 65 09/01/17 20:18 Nasal Cannula 09/01/17 20:18 Nasal Cannula 09/01/17 20:00 97.6 67 20 112/54 95 Room Air 09/01/17 20:00 61 09/01/17 16:24 98.4 67 18 105/58 95 Room Air 09/01/17 16:00 61 09/01/17 14:41 88 20 96 Nasal Cannula 2.0 28 Intake and Output 09/02/17 09/03/17 19:00 07:00 Intake Total 120 ml Balance 120 ml Intake Oral 120 ml General Appearance: WD/WN HEENT: normocephalic, atraumatic Respiratory/Chest: chest wall non-tender, lungs clear Cardiovascular: normal peripheral pulses, normal rate Abdomen: normal bowel sounds, soft, non tender Extremities: no cyanosis, no clubbing 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 Lymphatic: no neck adenopathy Microbiology Date/Time Source Procedure Growth Status 09/01/17 10:00 Sputum Gram Stain Pending Resulted 09/01/17 10:00 Sputum Sputum Culture - Preliminary Resulted Laboratory Tests 09/02/17 07:40: White Blood Count 21.3H, Red Blood Count 3.37L, Hemoglobin 11.4L, Hematocrit 32.8L, Mean Corpuscular Volume 98, Mean Corpuscular Hemoglobin 33.8H, Mean Corpuscular Hemoglobin Concent 34.6, Red Cell Distribution Width 12.8, Platelet Count 188, Mean Platelet Volume 12.5H, Neutrophils (%) (Auto) , Lymphocytes (%) (Auto) , Monocytes (%) (Auto) , Eosinophils (%) (Auto) , Basophils (%) (Auto) , Differential Total Cells Counted 100, Neutrophils % (Manual) 82H, Lymphocytes % (Manual) 10L, Monocytes % (Manual) 4, Eosinophils % (Manual) 0, Basophils % ( Manual) 0, Band Neutrophils 4, Platelet Estimate Adequate, Platelet Morphology Normal, Sodium Level 141, Potassium Level 4.0, Chloride Level 108H, Carbon Dioxide Level 25, Anion Gap 8, Blood Urea Nitrogen 34H, Creatinine 2.0H, Estimat Glomerular Filtration Rate , Glucose Level 90, Hemoglobin A1c 8.7H, Calcium Level 8.7, Phosphorus Level 2.8, Albumin 2.8L, Triglycerides Level 37, Cholesterol Level 120, LDL Cholesterol 67, HDL Cholesterol 54, Cholesterol/HDL Ratio 2.2L, Thyroid Stimulating Hormone (TSH) 0.655 Current Medications Medications (Trade) Dose Ordered Sig/Reuben Route PRN Reason Start Time Stop Time Status Last Admin Dose Admin Acetaminophen (Tylenol) 650 mg Q4H PRN ORAL T>100.5 09/01/17 16:15 10/01/17 08:14 Albuterol/ Ipratropium (DuoNeb 0.5-3(2.5)mg/3ml) 3 ml Q4H PRN HHN Shortness of Breath 09/01/17 16:15 09/06/17 08:14 09/02/17 05:38 Albuterol/ Ipratropium (DuoNeb 0.5-3(2.5)mg/3ml) 3 ml Q6HRT HHN 09/01/17 19:00 09/06/17 12:59 Aspirin (ASA) 81 mg DAILY ORAL 09/02/17 09:00 10/01/17 08:59 09/02/17 08:59 Azithromycin (Zithromax) 250 mg DAILY ORAL 09/02/17 09:00 09/09/17 08:59 09/02/17 08:59 Aztreonam 1 gm/ Dextrose 55 ml @ 110 mls/hr Q8HR IVPB 09/01/17 22:00 09/08/17 13:59 09/02/17 06:17 Ceftaroline Fosamil 300 mg/ Sodium Chloride 55 ml @ 55 mls/hr Q12H IVPB 09/02/17 00:00 09/08/17 11:59 09/02/17 12:33 Clonidine HCl (Catapres) 0.1 mg Q4H PRN ORAL sbp>170 09/01/17 16:30 10/01/17 16:29 Dextrose (Dextrose 50%) STAT PRN IV Hypoglycemia 09/01/17 15:30 10/01/17 15:29 Heparin Sodium (Porcine) (Heparin 5000 units/ml) 5,000 units EVERY 12 HOURS SUBQ 09/01/17 21:00 10/01/17 08:59 09/02/17 09:02 Insulin Aspart (NovoLOG) BEFORE MEALS AND HS SUBQ 09/01/17 16:30 10/01/17 11:29 Lorazepam (Ativan 2mg/ml 1ml) 2 mg Q2H PRN IV For Anxiety 09/01/17 16:15 09/08/17 08:14 Metronidazole 100 ml @ 100 mls/hr Q8H IVPB 09/01/17 21:00 09/08/17 12:59 09/02/17 13:28 Morphine Sulfate (Morphine Sulfate) 4 mg Q4H PRN IVP Severe Pain (Pain Scale 7-10) 09/01/17 16:15 09/08/17 08:14 Ondansetron HCl (Zofran) 4 mg Q6H PRN IVP Nausea & Vomiting 09/01/17 16:00 10/01/17 15:59 Polyethylene Glycol (Miralax) 17 gm DAILYPRN PRN ORAL Constipation 09/01/17 15:30 10/01/17 15:29 Promethazine HCl/ Codeine (Phenergan with Codeine) 5 ml Q4H PRN ORAL For Cough 09/01/17 16:15 10/01/17 08:14 09/01/17 20:26 Sitagliptin Phosphate (Januvia) 50 mg BIAC ORAL 09/01/17 16:30 10/01/17 16:29 09/02/17 06:17 Sodium Chloride 1,000 ml @ 60 mls/hr [id number] IV 09/01/17 16:30 10/01/17 16:29 09/02/17 09:03 DIANE DEVINE Sep 02, 2017 14:39
--- NOTE | 2017-09-02 14:46 | Cardiology Progress Note ---
Assessment/Plan Assessment/Plan The patient is seen and examined, full cardiology consult is dictated. Objective Last 24 Hour Vital Signs Date Time Temp Pulse Resp B/P (MAP) Pulse Ox O2 Delivery O2 Flow Rate FiO2 09/02/17 12:50 Nasal Cannula 09/02/17 12:50 Nasal Cannula 09/02/17 12:00 75 09/02/17 11:54 97.2 64 20 119/52 95 Nasal Cannula 09/02/17 08:52 97.5 68 20 124/55 95 Nasal Cannula 2.0 09/02/17 08:00 68 09/02/17 07:10 Nasal Cannula 09/02/17 07:10 Nasal Cannula 09/02/17 07:10 95 Nasal Cannula 2.0 28 09/02/17 05:40 70 20 96 Nasal Cannula 2.0 28 09/02/17 05:39 66 20 94 Nasal Cannula 2.0 28 09/02/17 04:34 97.0 64 20 115/60 95 Nasal Cannula 2.0 09/02/17 04:00 61 09/02/17 01:15 Nasal Cannula 09/02/17 01:15 Nasal Cannula 09/02/17 00:05 97.0 66 20 106/52 93 Room Air 09/02/17 00:00 65 09/01/17 20:18 Nasal Cannula 09/01/17 20:18 Nasal Cannula 09/01/17 20:00 97.6 67 20 112/54 95 Room Air 09/01/17 20:00 61 09/01/17 16:24 98.4 67 18 105/58 95 Room Air 09/01/17 16:00 61 Intake and Output 09/02/17 09/03/17 19:00 07:00 Intake Total 120 ml Balance 120 ml Intake Oral 120 ml Laboratory Tests Test 09/02/17 07:40 White Blood Count 21.3 K/UL (4.8-10.8) H Red Blood Count 3.37 M/UL (4.70-6.10) L Hemoglobin 11.4 G/DL (14.2-18.0) L Hematocrit 32.8 % (42.0-52.0) L Mean Corpuscular Volume 98 FL (80-99) Mean Corpuscular Hemoglobin 33.8 PG (27.0-31.0) H Mean Corpuscular Hemoglobin Concent 34.6 G/DL (32.0-36.0) Red Cell Distribution Width 12.8 % (11.6-14.8) Platelet Count 188 K/UL (150-450) Mean Platelet Volume 12.5 FL (6.5-10.1) H Neutrophils (%) (Auto) % (45.0-75.0) Lymphocytes (%) (Auto) % (20.0-45.0) Monocytes (%) (Auto) % (1.0-10.0) Eosinophils (%) (Auto) % (0.0-3.0) Basophils (%) (Auto) % (0.0-2.0) Differential Total Cells Counted 100 Neutrophils % (Manual) 82 % (45-75) H Lymphocytes % (Manual) 10 % (20-45) L Monocytes % (Manual) 4 % (1-10) Eosinophils % (Manual) 0 % (0-3) Basophils % (Manual) 0 % (0-2) Band Neutrophils 4 % (0-8) Platelet Estimate Adequate Platelet Morphology Normal Sodium Level 141 MMOL/L (136-145) Potassium Level 4.0 MMOL/L (3.5-5.1) Chloride Level 108 MMOL/L (98-107) H Carbon Dioxide Level 25 MMOL/L (21-32) Anion Gap 8 (5-15) Blood Urea Nitrogen 34 mg/dL (7-18) H Creatinine 2.0 MG/DL (0.55-1.30) H Estimat Glomerular Filtration Rate mL/min (>60) Glucose Level 90 MG/DL (74-106) Hemoglobin A1c 8.7 % (4.3-6.0) H Calcium Level 8.7 MG/DL (8.5-10.1) Phosphorus Level 2.8 MG/DL (2.5-4.9) Albumin 2.8 G/DL (3.4-5.0) L Triglycerides Level 37 MG/DL (0-200) Cholesterol Level 120 MG/DL (< 200) LDL Cholesterol 67 mg/dL (<100) HDL Cholesterol 54 MG/DL (40-60) Cholesterol/HDL Ratio 2.2 (3.3-4.4) L Thyroid Stimulating Hormone (TSH) 0.655 uiU/mL (0.360-3.740) Microbiology Date/Time Source Procedure Growth Status 09/01/17 10:00 Sputum Gram Stain Pending Resulted 09/01/17 10:00 Sputum Sputum Culture - Preliminary Resulted VINNY LORD Sep 02, 2017 14:46
[2017-09-02 15:30] VITALS: BP 129/61
[2017-09-02] MEDS ORDERED: Miralax 17gm pkt ORAL PRN (16:00)
[2017-09-02] MEDS ORDERED: Albuterol/Ipratropium 3ml neb HHN PRN (16:15)
[2017-09-02] MEDS ORDERED: LORazepam Inj 2mg/ml 1ml IV PRN (16:15)
[2017-09-02] MEDS ORDERED: Promethazine/Codeine 5ml UD ORAL PRN (16:15)
[2017-09-02] MEDS ORDERED: Morphine Sulfate 4mg/ml Inj IVP PRN (16:15)
[2017-09-02 20:00] VITALS: BP 139/62
--- NOTE | 2017-09-02 23:22 | Infectious Diseases Prog Note ---
Assessment/Plan Problems: (1) Sepsis Assessment & Plan: Due to pneumonia? (2) Pneumonia Assessment & Plan: On ceftaroline and metronidazole. Follow-up CXR and SCx. Probably taper aztreonam soon. (3) Renal failure (ARF), acute on chronic Assessment & Plan: In the setting of sepsis. (4) Penicillin allergy Assessment & Plan: Tolerating ceftaroline so far. Subjective Allergies: Coded Allergies: PENICILLIN G (Verified Allergy, Mild, 12/26/10) Objective Vital Signs Last 24 Hour Vital Signs Date Time Temp Pulse Resp B/P (MAP) Pulse Ox O2 Delivery O2 Flow Rate FiO2 09/02/17 22:04 67 16 97 Nasal Cannula 3.0 32 09/02/17 21:58 93 Nasal Cannula 2.0 28 09/02/17 21:58 Nasal Cannula 2.0 28 09/02/17 21:56 63 16 93 Nasal Cannula 2.0 28 09/02/17 21:56 28 09/02/17 15:30 97.7 76 18 129/61 95 Nasal Cannula 2.0 09/02/17 12:50 Nasal Cannula 09/02/17 12:50 Nasal Cannula 09/02/17 12:00 75 09/02/17 11:54 97.2 64 20 119/52 95 Nasal Cannula 09/02/17 08:52 97.5 68 20 124/55 95 Nasal Cannula 2.0 09/02/17 08:00 68 09/02/17 07:10 Nasal Cannula 09/02/17 07:10 Nasal Cannula 09/02/17 07:10 95 Nasal Cannula 2.0 09/02/17 05:40 70 20 96 Nasal Cannula 2.0 09/02/17 05:39 66 20 94 Nasal Cannula 2.0 28 09/02/17 04:34 97.0 64 20 115/60 95 Nasal Cannula 2.0 09/02/17 04:00 61 09/02/17 01:15 Nasal Cannula 09/02/17 01:15 Nasal Cannula 09/02/17 00:05 97.0 66 20 106/52 93 Room Air 09/02/17 00:00 65 Height (Feet): 5 Height (Inches): 6.00 Weight (Pounds): 142 Microbiology Date/Time Source Procedure Growth Status 09/01/17 10:00 Sputum Gram Stain Pending Resulted 09/01/17 10:00 Sputum Sputum Culture - Preliminary Resulted Laboratory Tests Test 09/02/17 07:40 White Blood Count 21.3 K/UL (4.8-10.8) H Red Blood Count 3.37 M/UL (4.70-6.10) L Hemoglobin 11.4 G/DL (14.2-18.0) L Hematocrit 32.8 % (42.0-52.0) L Mean Corpuscular Volume 98 FL (80-99) Mean Corpuscular Hemoglobin 33.8 PG (27.0-31.0) H Mean Corpuscular Hemoglobin Concent 34.6 G/DL (32.0-36.0) Red Cell Distribution Width 12.8 % (11.6-14.8) Platelet Count 188 K/UL (150-450) Mean Platelet Volume 12.5 FL (6.5-10.1) H Neutrophils (%) (Auto) % (45.0-75.0) Lymphocytes (%) (Auto) % (20.0-45.0) Monocytes (%) (Auto) % (1.0-10.0) Eosinophils (%) (Auto) % (0.0-3.0) Basophils (%) (Auto) % (0.0-2.0) Differential Total Cells Counted 100 Neutrophils % (Manual) 82 % (45-75) H Lymphocytes % (Manual) 10 % (20-45) L Monocytes % (Manual) 4 % (1-10) Eosinophils % (Manual) 0 % (0-3) Basophils % (Manual) 0 % (0-2) Band Neutrophils 4 % (0-8) Platelet Estimate Adequate Platelet Morphology Normal Sodium Level 141 MMOL/L (136-145) Potassium Level 4.0 MMOL/L (3.5-5.1) Chloride Level 108 MMOL/L (98-107) H Carbon Dioxide Level 25 MMOL/L (21-32) Anion Gap 8 (5-15) Blood Urea Nitrogen 34 mg/dL (7-18) H Creatinine 2.0 MG/DL (0.55-1.30) H Estimat Glomerular Filtration Rate mL/min (>60) Glucose Level 90 MG/DL (74-106) Hemoglobin A1c 8.7 % (4.3-6.0) H Calcium Level 8.7 MG/DL (8.5-10.1) Phosphorus Level 2.8 MG/DL (2.5-4.9) Albumin 2.8 G/DL (3.4-5.0) L Triglycerides Level 37 MG/DL (0-200) Cholesterol Level 120 MG/DL (< 200) LDL Cholesterol 67 mg/dL (<100) HDL Cholesterol 54 MG/DL (40-60) Cholesterol/HDL Ratio 2.2 (3.3-4.4) L Thyroid Stimulating Hormone (TSH) 0.655 uiU/mL (0.360-3.740) Current Medications Medications (Trade) Dose Ordered Sig/Reuben Route PRN Reason Start Time Stop Time Status Last Admin Dose Admin Acetaminophen (Tylenol) 650 mg Q4H PRN ORAL T>100.5 09/02/17 16:15 10/01/17 08:14 Albuterol/ Ipratropium (DuoNeb 0.5-3(2.5)mg/3ml) 3 ml Q4H PRN HHN Shortness of Breath 09/02/17 16:15 09/06/17 08:14 Albuterol/ Ipratropium (DuoNeb 0.5-3(2.5)mg/3ml) 3 ml Q6HRT HHN 09/02/17 19:00 09/06/17 12:59 09/02/17 21:56 Aspirin (ASA) 81 mg DAILY ORAL 09/03/17 09:00 10/01/17 08:59 Azithromycin (Zithromax) 250 mg DAILY ORAL 09/03/17 09:00 09/09/17 08:59 Aztreonam 1 gm/ Dextrose 55 ml @ 110 mls/hr Q8HR IVPB 09/02/17 22:00 09/08/17 13:59 09/02/17 22:43 Ceftaroline Fosamil 300 mg/ Sodium Chloride 55 ml @ 55 mls/hr Q12H IVPB 09/03/17 00:00 09/08/17 11:59 Clonidine HCl (Catapres) 0.1 mg Q4H PRN ORAL sbp>170 09/02/17 16:30 10/01/17 16:29 Dextrose (Dextrose 50%) STAT PRN IV Hypoglycemia 09/02/17 16:00 10/02/17 15:59 Heparin Sodium (Porcine) (Heparin 5000 units/ml) 5,000 units EVERY 12 HOURS SUBQ 09/02/17 21:00 10/01/17 08:59 Insulin Aspart (NovoLOG) BEFORE MEALS AND HS SUBQ 09/02/17 17:00 10/01/17 16:59 Lorazepam (Ativan 2mg/ml 1ml) 2 mg Q2H PRN IV For Anxiety 09/02/17 16:15 09/08/17 08:14 Metronidazole 100 ml @ 100 mls/hr Q8H IVPB 09/02/17 21:00 09/08/17 12:59 09/02/17 20:45 Morphine Sulfate (Morphine Sulfate) 4 mg Q4H PRN IVP Severe Pain (Pain Scale 7-10) 09/02/17 16:15 09/08/17 08:14 Ondansetron HCl (Zofran) 4 mg Q6H PRN IVP Nausea & Vomiting 09/02/17 16:00 10/01/17 15:59 Polyethylene Glycol (Miralax) 17 gm DAILYPRN PRN ORAL Constipation 09/02/17 16:00 10/02/17 15:59 Promethazine HCl/ Codeine (Phenergan with Codeine) 5 ml Q4H PRN ORAL For Cough 09/02/17 16:15 10/01/17 08:14 Sitagliptin Phosphate (Januvia) 50 mg BIAC ORAL 09/02/17 16:30 10/01/17 16:29 09/02/17 18:25 Sodium Chloride 1,000 ml @ 60 mls/hr [id number] IV 09/02/17 17:00 10/01/17 16:59 YARELIS CLAYTON Sep 02, 2017 23:22
[2017-09-03] VITALS: BP 125/60
[2017-09-03] MEDS: Ceftaroline 300 MG in NS 55 ML IVPB SCH ×2 (01:04→12:30)
[2017-09-03] MEDS: Albuterol/Ipratropium 3ml neb HHN SCH ×4 (01:21→19:41)
[2017-09-03 04:00] VITALS: BP 161/79
[2017-09-03] MEDS: Aztreonam Inj 1 GM in D5W 55 ML IVPB SCH ×3 (05:43→22:45)
[2017-09-03] MEDS: NovoLOG Insulin Flexpen SUBQ SCH ×4 (06:30→21:00)
[2017-09-03] MEDS: sitaGLIPtin 50mg tab ORAL SCH ×2 (06:43→17:03)
[2017-09-03 07:23] LABS: MEAN CORPUSCULAR HEMOGLOBIN 34.2 PG (27.0-31.0); MEAN CORPUSCULAR HGB CONC 35.2 G/DL (32.0-36.0); MEAN CORPUSCULAR VOLUME 97 FL (80-99); MEAN PLATELET VOLUME 10.3 FL (6.5-10.1); PLATELET COUNT 198 K/UL (150-450); RED CELL DISTRIBUTION WIDTH 12.2 % (11.6-14.8); WHITE BLOOD COUNT 21.1 K/UL (4.8-10.8)
[2017-09-03 07:27] LABS: ANION GAP 10 mmol/L (5-15); CALCIUM 8.9 MG/DL (8.5-10.1); CARBON DIOXIDE 23 MMOL/L (21-32); CHLORIDE 105 MMOL/L (98-107); CREATININE 1.9 MG/DL (0.55-1.30); POTASSIUM 3.8 MMOL/L (3.5-5.1); SODIUM 138 MMOL/L (136-145)
[2017-09-03 08:00] VITALS: BP 153/73
--- NOTE | 2017-09-03 08:17 | Consultation ---
DATE OF CONSULTATION: 09/02/2017 CARDIOLOGY CONSULTATION CONSULTING PHYSICIAN: Isac Ramos M.D. REFERRING PHYSICIAN: Uche Banegas D.O. REASON FOR CONSULTATION: Management of dyspnea. HISTORY OF PRESENT ILLNESS: The patient is a very unfortunate 77-year-old gentleman, who presents to the hospital with dizziness, weakness, lightheadedness, and shortness of breath. The patient was found to be hypoxemic in the emergency department with associated fever and leukocytosis. Chest x-ray showed no evidence of acute infiltration. Cardiology consultation was made at the request of Dr. Banegas for evaluation and management of shortness of breath. The patient's risk factors for coronary artery disease includes diabetes mellitus and hypertension. The patient denies any prior history of coronary artery disease or congestive heart failure. On arrival to the emergency department, initial blood pressure was 190/87 mmHg and his heart rate was 104. A rhythm strip in the emergency department shows sinus rhythm. A 12-lead electrocardiogram is not available at this time. PAST MEDICAL HISTORY: Includes diabetes mellitus, hypertension, history of gastrointestinal problems, and history of cardiac disease. PAST SURGICAL HISTORY: None. ALLERGIES: To penicillin G. LIST OF MEDICATIONS: 1. Aspirin 81 mg p.o. daily. 2. Clonidine 0.2 mg three times daily. 3. Glipizide 5 mg p.o. twice daily. 4. DiaBeta 5 mg p.o. daily. 5. Lisinopril 10 mg p.o. daily. 6. Metformin 500 mg three times daily. 7. Januvia 50 mg p.o. twice daily. SOCIAL HISTORY: Denies any tobacco, alcohol, or illicit drug use. REVIEW OF SYSTEMS: HEENT: Denies any headache, diplopia, or blurred vision. CONSTITUTIONAL: He had subjective chills, but no fever. Complains of generalized weakness. CARDIOVASCULAR: He had some pleuritic chest pain as well as shortness of breath. No PND, orthopnea, or leg swelling. PULMONARY: Productive cough of greenish sputum and shortness of breath, but no hemoptysis. GASTROINTESTINAL: Denies any nausea, vomiting, diarrhea, constipation, abdominal pain, or GI bleed. GENITOURINARY: Denies any hematuria, dysuria, or incontinence. NEUROLOGY: Denies any motor dysfunction, sensory deficit, or altered speech. MUSCULOSKELETAL: There is pain all over the body. PHYSICAL EXAMINATION: VITAL SIGNS: Blood pressure 190/67, respirations of 18, pulse of 104, temperature 99.7 degrees Fahrenheit, and O2 saturation 92% on room air. GENERAL: The patient is a very pleasant, 77-year-old, ill-appearing gentleman, in no apparent respiratory distress. HEENT: Atraumatic and normocephalic. Anicteric. Pupils are equal, round, and reactive to light and accommodation. There is left eye ptosis. NECK: JVP less than 5 cm. No carotid bruit. Carotid upstrokes 2+ bilaterally. CARDIOVASCULAR: Normal S1 and S2. Regular rate and rhythm. No murmurs, gallops, or rubs. PMI is at fourth intercostal space at the midclavicular line. LUNGS: Clear to auscultation bilaterally. ABDOMEN: Soft, nontender, and nondistended. No hepatosplenomegaly. Positive bowel sounds. EXTREMITIES: No evidence of edema, clubbing, or cyanosis. DIAGNOSTIC DATA: Chest x-ray shows left basilar hazy opacity, may reflect atelectasis versus infiltration. CT of head showed no acute intracranial abnormalities with global cortical atrophy with periventricular chronic ischemic changes. LABORATORY FINDINGS: Sodium is 137, potassium is 4.6, chloride 101, bicarbonate 25, BUN of 42, creatinine 2.3, and glucose is 231. Calcium is 9.8. Troponin I is 0. ProBNP was 735. INR is 1.0. WBC was 16.0, hemoglobin 14.1, hematocrit of 41.6, and platelet count is 242. ASSESSMENT AND PLAN: The patient is a very unfortunate 77-year-old gentleman, seen in Cardiology consultation at the request of Dr. Banegas and Dr. Will. 1. Dyspnea, most likely due to pneumonia, which is a clinical diagnosis. Chest x-ray also shows some questionable infiltration. From cardiac standpoint, we would like to obtain 2D echocardiography, which has been ordered stat. on LV systolic and diastolic function. Further therapeutic and diagnostic decision will be based on the results of echocardiography. 2. History of diabetes mellitus. I would be inclined of using aspirin and statins in a detention. 3. Hypertension. Currently, blood pressure is well controlled. We will continue to monitor the patient's blood pressure in this hospitalization. 4. Chronic kidney disease. 5. The patient does not require to be in telemetry and can be safely transferred to medical/surgical unit. I would like to thank Dr. Will and Dr. Banegas for the courtesy of this consultation. Isac Ramos M.D. DR: ALIYAH JOB#: [id number] CC:
[2017-09-03] MEDS: Azithromycin 250mg tab ORAL SCH (08:31)
[2017-09-03] MEDS: Lisinopril 10mg tab ORAL SCH (08:32)
[2017-09-03] MEDS: Aspirin Baby 81mg ORAL SCH (08:32)
[2017-09-03] MEDS: Heparin 5000 units/ml inj SUBQ SCH ×2 (08:34→21:40)
[2017-09-03 09:44] LABS: BAND NEUTROPHILS % (MANUAL) 6 % (0-8); LYMPHOCYTES % (MANUAL) 3 % (20-45); NEUTROPHILS % (MANUAL) 88 % (45-75); TOTAL CELLS COUNTED 100
[2017-09-03 09:46] LABS: BASOPHILS % (MANUAL) 0 % (0-2); EOSINOPHILS % (MANUAL) 0 % (0-3); PLATELET ESTIMATE ADEQUATE; PLATELET MORPHOLOGY NORMAL
[2017-09-03 12:00] VITALS: BP 158/71
--- NOTE | 2017-09-03 13:20 | General Progress Note ---
Assessment/Plan Problem List: (1) Encephalopathy acute ICD Codes: G93.40 - Encephalopathy, unspecified SNOMED: 3181610 (2) Hypoxia ICD Codes: R09.02 - Hypoxemia SNOMED: 632443534, 47365456 (3) Sepsis ICD Codes: A41.9 - Sepsis, unspecified organism SNOMED: 85510676 Qualifiers: Qualified Codes: A41.9 - Sepsis, unspecified organism (4) Pneumonia ICD Codes: J18.9 - Pneumonia, unspecified organism SNOMED: 683179248 Qualifiers: Qualified Codes: J18.1 - Lobar pneumonia, unspecified organism (5) Diabetes ICD Codes: E11.9 - Type 2 diabetes mellitus without complications SNOMED: 65131771 (6) HTN (hypertension) ICD Codes: I10 - Essential (primary) hypertension SNOMED: 41523510 Status: stable, progressing, tolerating diet Assessment/Plan ot pt diet abx cbc bmp am promise ltach eval Subjective Constitutional: Reports: weakness Allergies: Coded Allergies: PENICILLIN G (Verified Allergy, Mild, 12/26/10) All Systems: reviewed and negative except above Subjective sleepy calm Objective Last 24 Hour Vital Signs Date Time Temp Pulse Resp B/P (MAP) Pulse Ox O2 Delivery O2 Flow Rate FiO2 09/03/17 12:00 98.3 60 18 158/71 97 Nasal Cannula 2.0 09/03/17 08:32 153/73 09/03/17 08:00 98.0 67 18 153/73 97 Nasal Cannula 2.0 96 09/03/17 06:51 73 16 96 Nasal Cannula 3.0 32 09/03/17 06:50 Nasal Cannula 2.0 28 09/03/17 06:50 94 Nasal Cannula 2.0 28 09/03/17 06:47 21 09/03/17 06:47 75 16 95 Nasal Cannula 2.0 28 09/03/17 04:00 98.2 74 18 161/79 96 Nasal Cannula 2.0 96 09/03/17 01:33 71 16 97 Nasal Cannula 3.0 32 09/03/17 01:18 69 18 90 Room Air 21 09/03/17 01:18 21 09/03/17 00:00 97.5 70 18 125/60 97 Nasal Cannula 2.0 09/02/17 22:04 67 16 97 Nasal Cannula 3.0 32 09/02/17 21:58 93 Nasal Cannula 2.0 28 09/02/17 21:58 Nasal Cannula 2.0 28 09/02/17 21:56 63 16 93 Nasal Cannula 2.0 28 09/02/17 21:56 28 09/02/17 20:00 98.7 72 18 139/62 95 Nasal Cannula 2.0 09/02/17 15:30 97.7 76 18 129/61 95 Nasal Cannula 2.0 Laboratory Tests 09/03/17 05:20: White Blood Count 21.1H, Red Blood Count 3.70L, Hemoglobin 12.7L, Hematocrit 36.0L, Mean Corpuscular Volume 97, Mean Corpuscular Hemoglobin 34.2H, Mean Corpuscular Hemoglobin Concent 35.2, Red Cell Distribution Width 12.2, Platelet Count 198, Mean Platelet Volume 10.3H, Neutrophils (%) (Auto) , Lymphocytes (%) (Auto) , Monocytes (%) (Auto) , Eosinophils (%) (Auto) , Basophils (%) (Auto) , Differential Total Cells Counted 100, Neutrophils % (Manual) 88H, Lymphocytes % (Manual) 3L, Monocytes % (Manual) 3, Eosinophils % (Manual) 0, Basophils % ( Manual) 0, Band Neutrophils 6, Platelet Estimate Adequate, Platelet Morphology Normal, Red Blood Cell Morphology Normal, Sodium Level 138, Potassium Level 3.8 , Chloride Level 105, Carbon Dioxide Level 23, Anion Gap 10, Blood Urea Nitrogen 31H, Creatinine 1.9H, Estimat Glomerular Filtration Rate , Glucose Level 120H, Calcium Level 8.9 Height (Feet): 5 Height (Inches): 6.00 Weight (Pounds): 142 General Appearance: lethargic EENT: normal ENT inspection Neck: normal alignment Cardiovascular: normal peripheral pulses, normal rate, regular rhythm Respiratory/Chest: chest wall non-tender, lungs clear, normal breath sounds Abdomen: normal bowel sounds, non tender, soft Extremities: normal inspection Edema: no edema noted Arm (L), no edema noted Arm (R), no edema noted Leg (L), no edema noted Leg (R), no edema noted Pedal (L), no edema noted Pedal (R), no edema noted Generalized Neurologic: motor weakness Skin: normal pigmentation, warm/dry YOAN SALGUERO Sep 03, 2017 13:20
[2017-09-03 16:00] VITALS: BP 148/70
[2017-09-03 20:11] VITALS: BP 156/72
--- NOTE | 2017-09-03 22:49 | Nephrology Progress Note ---
Objective Objective Last 24 Hour Vital Signs Date Time Temp Pulse Resp B/P (MAP) Pulse Ox O2 Delivery O2 Flow Rate FiO2 09/03/17 20:11 98.1 64 18 156/72 98 Nasal Cannula 3.0 09/03/17 19:42 98 Nasal Cannula 2.0 28 09/03/17 19:42 Nasal Cannula 2.0 28 09/03/17 19:30 69 18 98 Nasal Cannula 2.0 28 09/03/17 19:25 21 09/03/17 19:25 67 18 97 Nasal Cannula 2.0 28 09/03/17 16:00 98.2 63 18 148/70 96 Nasal Cannula 2.0 09/03/17 13:36 71 18 95 Nasal Cannula 3.0 32 09/03/17 13:29 69 18 94 Nasal Cannula 2.0 28 09/03/17 13:29 21 09/03/17 12:00 98.3 60 18 158/71 97 Nasal Cannula 2.0 09/03/17 08:32 153/73 09/03/17 08:00 98.0 67 18 153/73 97 Nasal Cannula 2.0 96 09/03/17 06:51 73 16 96 Nasal Cannula 3.0 32 09/03/17 06:50 Nasal Cannula 2.0 28 09/03/17 06:50 94 Nasal Cannula 2.0 28 09/03/17 06:47 21 09/03/17 06:47 75 16 95 Nasal Cannula 2.0 28 09/03/17 04:00 98.2 74 18 161/79 96 Nasal Cannula 2.0 96 09/03/17 01:33 71 16 97 Nasal Cannula 3.0 32 09/03/17 01:18 69 18 90 Room Air 21 09/03/17 01:18 21 09/03/17 00:00 97.5 70 18 125/60 97 Nasal Cannula 2.0 Intake and Output 09/03/17 09/04/17 19:00 07:00 Intake Total 210 ml Balance 210 ml IV Total 210 ml # Bowel Movements 1 Laboratory Tests 09/03/17 05:20: White Blood Count 21.1H, Red Blood Count 3.70L, Hemoglobin 12.7L, Hematocrit 36.0L, Mean Corpuscular Volume 97, Mean Corpuscular Hemoglobin 34.2H, Mean Corpuscular Hemoglobin Concent 35.2, Red Cell Distribution Width 12.2, Platelet Count 198, Mean Platelet Volume 10.3H, Neutrophils (%) (Auto) , Lymphocytes (%) (Auto) , Monocytes (%) (Auto) , Eosinophils (%) (Auto) , Basophils (%) (Auto) , Differential Total Cells Counted 100, Neutrophils % (Manual) 88H, Lymphocytes % (Manual) 3L, Monocytes % (Manual) 3, Eosinophils % (Manual) 0, Basophils % ( Manual) 0, Band Neutrophils 6, Platelet Estimate Adequate, Platelet Morphology Normal, Red Blood Cell Morphology Normal, Sodium Level 138, Potassium Level 3.8 , Chloride Level 105, Carbon Dioxide Level 23, Anion Gap 10, Blood Urea Nitrogen 31H, Creatinine 1.9H, Estimat Glomerular Filtration Rate , Glucose Level 120H, Calcium Level 8.9 Height (Feet): 5 Height (Inches): 6.00 Weight (Pounds): 142 KARINE GAVIRIA Sep 03, 2017 22:49
[2017-09-04] VITALS: BP 144/73
[2017-09-04] MEDS: Albuterol/Ipratropium 3ml neb HHN SCH ×4 (00:26→20:37)
[2017-09-04] MEDS: Ceftaroline 300 MG in NS 55 ML IVPB SCH ×3 (00:47→23:58)
[2017-09-04 05:31] VITALS: BP 142/82
[2017-09-04] MEDS: NovoLOG Insulin Flexpen SUBQ SCH ×4 (06:30→20:54)
[2017-09-04] MEDS: Aztreonam Inj 1 GM in D5W 55 ML IVPB SCH ×3 (06:37→22:03)
[2017-09-04] MEDS: sitaGLIPtin 50mg tab ORAL SCH ×2 (06:37→17:01)
[2017-09-04 06:49] LABS: MEAN CORPUSCULAR HEMOGLOBIN 32.5 PG (27.0-31.0); MEAN CORPUSCULAR HGB CONC 33.6 G/DL (32.0-36.0); MEAN CORPUSCULAR VOLUME 97 FL (80-99); MEAN PLATELET VOLUME 11.1 FL (6.5-10.1); PLATELET COUNT 250 K/UL (150-450); RED BLOOD COUNT 4.08 M/UL (4.70-6.10); WHITE BLOOD COUNT 19.5 K/UL (4.8-10.8)
[2017-09-04 07:16] LABS: ANION GAP 12 mmol/L (5-15); CALCIUM 9.4 MG/DL (8.5-10.1); CARBON DIOXIDE 23 MMOL/L (21-32); CHLORIDE 103 MMOL/L (98-107); CREATININE 1.9 MG/DL (0.55-1.30); POTASSIUM 4.3 MMOL/L (3.5-5.1); SODIUM 138 MMOL/L (136-145)
[2017-09-04 08:00] VITALS: BP 139/77
[2017-09-04] MEDS: Aspirin Baby 81mg ORAL SCH (09:07)
[2017-09-04] MEDS: Azithromycin 250mg tab ORAL SCH (09:07)
[2017-09-04] MEDS: Lisinopril 10mg tab ORAL SCH (09:07)
[2017-09-04] MEDS: Heparin 5000 units/ml inj SUBQ SCH ×2 (09:12→20:56)
[2017-09-04 09:35] LABS: BAND NEUTROPHILS % (MANUAL) 7 % (0-8); BASOPHILS % (MANUAL) 0 % (0-2); EOSINOPHILS % (MANUAL) 1 % (0-3); LYMPHOCYTES % (MANUAL) 5 % (20-45); NEUTROPHILS % (MANUAL) 80 % (45-75); PLATELET ESTIMATE ADEQUATE; PLATELET MORPHOLOGY NORMAL; TOTAL CELLS COUNTED 100
--- NOTE | 2017-09-04 10:25 | Diagnostic Imaging Report ---
Indication: Abnormal renal function tests Technique: Grayscale and duplex images of the kidneys, retroperitoneum, and bladder were obtained. Comparison:06/22/2013 Findings: Right kidney measures 10.8 cm in length. Left kidney measures 10.2 cm in length. Both kidneys demonstrate normal echogenicity. No hydronephrosis. There are renal cysts bilaterally.. Normal inferior vena cava. Bladder is normal. 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 Impression: Negative for hydronephrosis Incidental finding bilateral renal cysts.
[2017-09-04 12:00] VITALS: BP 135/74
--- NOTE | 2017-09-04 14:48 | General Progress Note ---
Assessment/Plan Problem List: (1) Encephalopathy acute ICD Codes: G93.40 - Encephalopathy, unspecified SNOMED: 3609929 (2) Hypoxia ICD Codes: R09.02 - Hypoxemia SNOMED: 750954763, 24020801 (3) Sepsis ICD Codes: A41.9 - Sepsis, unspecified organism SNOMED: 80712265 Qualifiers: Qualified Codes: A41.9 - Sepsis, unspecified organism (4) Pneumonia ICD Codes: J18.9 - Pneumonia, unspecified organism SNOMED: 796599700 Qualifiers: Qualified Codes: J18.1 - Lobar pneumonia, unspecified organism (5) Diabetes ICD Codes: E11.9 - Type 2 diabetes mellitus without complications SNOMED: 95586952 (6) HTN (hypertension) ICD Codes: I10 - Essential (primary) hypertension SNOMED: 24496148 Status: stable, progressing, tolerating diet Assessment/Plan ot pt diet abx cbc bmp am promise ltach eval vs dc plan Subjective Constitutional: Reports: weakness Allergies: Coded Allergies: PENICILLIN G (Verified Allergy, Mild, 12/26/10) All Systems: reviewed and negative except above Subjective sleepy calm Objective Last 24 Hour Vital Signs Date Time Temp Pulse Resp B/P (MAP) Pulse Ox O2 Delivery O2 Flow Rate FiO2 09/04/17 13:15 Nasal Cannula 09/04/17 13:15 Nasal Cannula 09/04/17 12:00 98.2 74 18 135/74 99 Nasal Cannula 3.0 09/04/17 09:07 139/98 09/04/17 08:00 97.9 77 18 139/77 94 Nasal Cannula 3.0 09/04/17 07:45 68 18 99 Nasal Cannula 2.0 28 09/04/17 07:35 28 09/04/17 07:35 Nasal Cannula 2.0 28 09/04/17 07:35 65 16 96 Nasal Cannula 2.0 09/04/17 07:35 96 Nasal Cannula 2.0 28 09/04/17 05:31 97.6 67 18 142/82 98 Nasal Cannula 3.0 09/04/17 00:26 65 18 98 Nasal Cannula 2.0 28 09/04/17 00:20 21 09/04/17 00:20 62 18 94 Nasal Cannula 2.0 09/04/17 00:00 98.2 70 18 144/73 98 Nasal Cannula 3.0 09/03/17 20:11 98.1 64 18 156/72 98 Nasal Cannula 3.0 09/03/17 19:42 98 Nasal Cannula 2.0 28 09/03/17 19:42 Nasal Cannula 2.0 28 09/03/17 19:30 69 18 98 Nasal Cannula 2.0 28 09/03/17 19:25 21 09/03/17 19:25 67 18 97 Nasal Cannula 2.0 28 09/03/17 16:00 98.2 63 18 148/70 96 Nasal Cannula 2.0 Intake and Output 09/04/17 09/05/17 19:00 07:00 Intake Total 295 ml Balance 295 ml IV Total 295 ml Laboratory Tests 09/04/17 05:20: White Blood Count 19.5H, Red Blood Count 4.08L, Hemoglobin 13.3L, Hematocrit 39.4L, Mean Corpuscular Volume 97, Mean Corpuscular Hemoglobin 32.5H, Mean Corpuscular Hemoglobin Concent 33.6, Red Cell Distribution Width 12.0, Platelet Count 250, Mean Platelet Volume 11.1H, Neutrophils (%) (Auto) , Lymphocytes (%) (Auto) , Monocytes (%) (Auto) , Eosinophils (%) (Auto) , Basophils (%) (Auto) , Differential Total Cells Counted 100, Neutrophils % (Manual) 80H, Lymphocytes % (Manual) 5L, Monocytes % (Manual) 7, Eosinophils % (Manual) 1, Basophils % ( Manual) 0, Band Neutrophils 7, Platelet Estimate Adequate, Platelet Morphology Normal, Red Blood Cell Morphology Normal, Sodium Level 138, Potassium Level 4.3 , Chloride Level 103, Carbon Dioxide Level 23, Anion Gap 12, Blood Urea Nitrogen 31H, Creatinine 1.9H, Estimat Glomerular Filtration Rate , Glucose Level 170H, Calcium Level 9.4 Height (Feet): 5 Height (Inches): 6.00 Weight (Pounds): 142 General Appearance: lethargic EENT: normal ENT inspection Neck: normal alignment Cardiovascular: normal peripheral pulses, normal rate, regular rhythm Respiratory/Chest: chest wall non-tender, lungs clear, normal breath sounds Abdomen: normal bowel sounds, non tender, soft Extremities: normal inspection Edema: no edema noted Arm (L), no edema noted Arm (R), no edema noted Leg (L), no edema noted Leg (R), no edema noted Pedal (L), no edema noted Pedal (R), no edema noted Generalized Neurologic: motor weakness Skin: normal pigmentation, warm/dry YOAN SALGUERO Sep 04, 2017 14:48
--- NOTE | 2017-09-04 15:17 | Pulmonology Progress Note ---
Assessment/Plan Problems: (1) Sepsis (2) Encephalopathy acute (3) Diabetes (4) Hypoxia (5) HTN (hypertension) Assessment/Plan improving check cultures continue abx titrate fio2 to sat of 92% pt/ot med/surg if ok with cardio Subjective ROS Limited/Unobtainable: No Allergies: Coded Allergies: PENICILLIN G (Verified Allergy, Mild, 12/26/10) Objective Last 24 Hour Vital Signs Date Time Temp Pulse Resp B/P (MAP) Pulse Ox O2 Delivery O2 Flow Rate FiO2 09/04/17 13:15 Nasal Cannula 09/04/17 13:15 Nasal Cannula 09/04/17 12:00 98.2 74 18 135/74 99 Nasal Cannula 3.0 09/04/17 09:07 139/98 09/04/17 08:00 97.9 77 18 139/77 94 Nasal Cannula 3.0 09/04/17 07:45 68 18 99 Nasal Cannula 2.0 28 09/04/17 07:35 28 09/04/17 07:35 Nasal Cannula 2.0 28 09/04/17 07:35 65 16 96 Nasal Cannula 2.0 28 09/04/17 07:35 96 Nasal Cannula 2.0 28 09/04/17 05:31 97.6 67 18 142/82 98 Nasal Cannula 3.0 09/04/17 00:26 65 18 98 Nasal Cannula 2.0 28 09/04/17 00:20 21 09/04/17 00:20 62 18 94 Nasal Cannula 2.0 28 09/04/17 00:00 98.2 70 18 144/73 98 Nasal Cannula 3.0 09/03/17 20:11 98.1 64 18 156/72 98 Nasal Cannula 3.0 09/03/17 19:42 98 Nasal Cannula 2.0 28 09/03/17 19:42 Nasal Cannula 2.0 28 09/03/17 19:30 69 18 98 Nasal Cannula 2.0 28 09/03/17 19:25 21 09/03/17 19:25 67 18 97 Nasal Cannula 2.0 28 09/03/17 16:00 98.2 63 18 148/70 96 Nasal Cannula 2.0 Intake and Output 09/04/17 09/05/17 19:00 07:00 Intake Total 395 ml Balance 395 ml IV Total 395 ml General Appearance: WD/WN HEENT: normocephalic, mucous membranes moist Respiratory/Chest: chest wall non-tender, lungs clear, normal breath sounds Cardiovascular: regular rhythm Abdomen: normal bowel sounds, soft, non tender Genitourinary: normal external genitalia Extremities: no cyanosis Skin: no ulcers 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, no motor/sensory deficits Microbiology Date/Time Source Procedure Growth Status 09/04/17 07:52 Nose Influenza Types A,B Antigen ([facility]) - Final Complete Laboratory Tests 09/04/17 05:20: White Blood Count 19.5H, Red Blood Count 4.08L, Hemoglobin 13.3L, Hematocrit 39.4L, Mean Corpuscular Volume 97, Mean Corpuscular Hemoglobin 32.5H, Mean Corpuscular Hemoglobin Concent 33.6, Red Cell Distribution Width 12.0, Platelet Count 250, Mean Platelet Volume 11.1H, Neutrophils (%) (Auto) , Lymphocytes (%) (Auto) , Monocytes (%) (Auto) , Eosinophils (%) (Auto) , Basophils (%) (Auto) , Differential Total Cells Counted 100, Neutrophils % (Manual) 80H, Lymphocytes % (Manual) 5L, Monocytes % (Manual) 7, Eosinophils % (Manual) 1, Basophils % ( Manual) 0, Band Neutrophils 7, Platelet Estimate Adequate, Platelet Morphology Normal, Red Blood Cell Morphology Normal, Sodium Level 138, Potassium Level 4.3 , Chloride Level 103, Carbon Dioxide Level 23, Anion Gap 12, Blood Urea Nitrogen 31H, Creatinine 1.9H, Estimat Glomerular Filtration Rate , Glucose Level 170H, Calcium Level 9.4 Current Medications Medications (Trade) Dose Ordered Sig/Reuben Route PRN Reason Start Time Stop Time Status Last Admin Dose Admin Acetaminophen (Tylenol) 650 mg Q4H PRN ORAL T>100.5 09/02/17 16:15 10/01/17 08:14 Albuterol/ Ipratropium (DuoNeb 0.5-3(2.5)mg/3ml) 3 ml Q4H PRN HHN Shortness of Breath 09/02/17 16:15 09/06/17 08:14 Albuterol/ Ipratropium (DuoNeb 0.5-3(2.5)mg/3ml) 3 ml Q6HRT HHN 09/02/17 19:00 09/06/17 12:59 09/04/17 07:34 Aspirin (ASA) 81 mg DAILY ORAL 09/03/17 09:00 10/01/17 08:59 09/04/17 09:07 Azithromycin (Zithromax) 250 mg DAILY ORAL 09/03/17 09:00 09/09/17 08:59 09/04/17 09:07 Aztreonam 1 gm/ Dextrose 55 ml @ 110 mls/hr Q8HR IVPB 09/02/17 22:00 09/08/17 13:59 09/04/17 14:58 Ceftaroline Fosamil 300 mg/ Sodium Chloride 55 ml @ 55 mls/hr Q12H IVPB 09/03/17 00:00 09/08/17 11:59 09/04/17 11:53 Clonidine HCl (Catapres) 0.1 mg Q4H PRN ORAL sbp>170 09/02/17 16:30 10/01/17 16:29 Dextrose (Dextrose 50%) STAT PRN IV Hypoglycemia 09/02/17 16:00 10/02/17 15:59 Heparin Sodium (Porcine) (Heparin 5000 units/ml) 5,000 units EVERY 12 HOURS SUBQ 09/02/17 21:00 10/01/17 08:59 09/04/17 09:12 Insulin Aspart (NovoLOG) BEFORE MEALS AND HS SUBQ 09/02/17 17:00 10/01/17 16:59 09/03/17 17:05 Lisinopril (Zestril) 10 mg DAILY ORAL 09/03/17 09:00 10/03/17 08:59 09/04/17 09:07 Lorazepam (Ativan 2mg/ml 1ml) 2 mg Q2H PRN IV For Anxiety 09/02/17 16:15 09/08/17 08:14 Metronidazole 100 ml @ 100 mls/hr Q8H IVPB 09/02/17 21:00 09/08/17 12:59 09/04/17 13:04 Morphine Sulfate (Morphine Sulfate) 4 mg Q4H PRN IVP Severe Pain (Pain Scale 7-10) 09/02/17 16:15 09/08/17 08:14 Ondansetron HCl (Zofran) 4 mg Q6H PRN IVP Nausea & Vomiting 09/02/17 16:00 10/01/17 15:59 Polyethylene Glycol (Miralax) 17 gm DAILYPRN PRN ORAL Constipation 09/02/17 16:00 10/02/17 15:59 Promethazine HCl/ Codeine (Phenergan with Codeine) 5 ml Q4H PRN ORAL For Cough 09/02/17 16:15 10/01/17 08:14 Sitagliptin Phosphate (Januvia) 50 mg BIAC ORAL 09/02/17 16:30 10/01/17 16:29 09/04/17 06:37 Sodium Chloride 1,000 ml @ 60 mls/hr [id number] IV 09/02/17 17:00 10/01/17 16:59 09/04/17 00:47 DIANE DEVINE Sep 04, 2017 15:17
[2017-09-04] MEDS ORDERED: Tubing IV Secondary IV ONE ×2 (16:00→16:03)
[2017-09-04] MEDS ORDERED: 1/2 NS 1000ml IV ONE (16:03)
[2017-09-04 17:14] VITALS: BP 156/80
[2017-09-04 20:00] VITALS: BP 160/79
--- NOTE | 2017-09-04 20:41 | Nephrology Progress Note ---
Assessment/Plan Problem List: (1) Renal failure (ARF), acute on chronic (2) Renal cyst (3) Sepsis (4) Pneumonia (5) Diabetes (6) HTN (hypertension) Plan consult dictated # [id number] Subjective Constitutional: Denies: no symptoms, chills, diaphoresis, fever, malaise, weakness, other HEENT: Denies: no symptoms, eye pain, blurred vision, tearing, double vision, ear pain, ear discharge, nose pain, nose congestion, throat pain, throat swelling, mouth pain, mouth swelling, other Genitourinary: Denies: no symptoms, burning, discharge, frequency, flank pain, hematuria, incontinence, pain, urgency, other Neurologic/Psychiatric: Denies: no symptoms, anxiety, depressed, emotional problems, headache, numbness, paresthesia, pre-existing deficit, seizure, tingling, tremors, weakness, other Subjective In no apparent distress Objective Objective Last 24 Hour Vital Signs Date Time Temp Pulse Resp B/P (MAP) Pulse Ox O2 Delivery O2 Flow Rate FiO2 09/04/17 20:37 Nasal Cannula 2.0 09/04/17 20:37 92 Room Air 09/04/17 20:37 78 16 92 Room Air 09/04/17 17:14 98.2 64 18 156/80 95 Room Air 09/04/17 13:15 Nasal Cannula 09/04/17 13:15 Nasal Cannula 09/04/17 12:00 98.2 74 18 135/74 99 Nasal Cannula 3.0 09/04/17 09:07 139/98 09/04/17 08:00 97.9 77 18 139/77 94 Nasal Cannula 3.0 09/04/17 07:45 68 18 99 Nasal Cannula 2.0 09/04/17 07:35 28 09/04/17 07:35 Nasal Cannula 2.0 09/04/17 07:35 65 16 96 Nasal Cannula 2.0 09/04/17 07:35 96 Nasal Cannula 2.0 09/04/17 05:31 97.6 67 18 142/82 98 Nasal Cannula 3.0 09/04/17 00:26 65 18 98 Nasal Cannula 2.0 09/04/17 00:20 21 09/04/17 00:20 62 18 94 Nasal Cannula 2.0 09/04/17 00:00 98.2 70 18 144/73 98 Nasal Cannula 3.0 Intake and Output 09/04/17 09/05/17 19:00 07:00 Intake Total 870 ml Balance 870 ml Intake Oral 300 ml IV Total 570 ml # Voids 1 Laboratory Tests 09/04/17 05:20: White Blood Count 19.5H, Red Blood Count 4.08L, Hemoglobin 13.3L, Hematocrit 39.4L, Mean Corpuscular Volume 97, Mean Corpuscular Hemoglobin 32.5H, Mean Corpuscular Hemoglobin Concent 33.6, Red Cell Distribution Width 12.0, Platelet Count 250, Mean Platelet Volume 11.1H, Neutrophils (%) (Auto) , Lymphocytes (%) (Auto) , Monocytes (%) (Auto) , Eosinophils (%) (Auto) , Basophils (%) (Auto) , Differential Total Cells Counted 100, Neutrophils % (Manual) 80H, Lymphocytes % (Manual) 5L, Monocytes % (Manual) 7, Eosinophils % (Manual) 1, Basophils % ( Manual) 0, Band Neutrophils 7, Platelet Estimate Adequate, Platelet Morphology Normal, Red Blood Cell Morphology Normal, Sodium Level 138, Potassium Level 4.3 , Chloride Level 103, Carbon Dioxide Level 23, Anion Gap 12, Blood Urea Nitrogen 31H, Creatinine 1.9H, Estimat Glomerular Filtration Rate , Glucose Level 170H, Calcium Level 9.4 Height (Feet): 5 Height (Inches): 6.00 Weight (Pounds): 142 General Appearance: no apparent distress, alert EENT: normal ENT inspection Neck: normal alignment, supple Cardiovascular: normal rate, regular rhythm Respiratory/Chest: decreased breath sounds Abdomen: non tender, soft, no organomegaly, no mass Extremities: non-tender, normal inspection Neurologic: alert, oriented x 3, responsive, normal mood/affect Johanna Perez N.P. Sep 04, 2017 20:41
--- NOTE | 2017-09-04 23:18 | Infectious Diseases Prog Note ---
Assessment/Plan Problems: (1) Sepsis Assessment & Plan: Due to pneumonia? Degree of leukocytosis seem out of proportion to degree of pneumonia on CXR. Follow-up gordon-CT to rule-out occult process. (2) Pneumonia Assessment & Plan: On ceftaroline and metronidazole. Follow-up CXR and SCx. (3) Renal failure (ARF), acute on chronic Assessment & Plan: In the setting of sepsis. (4) Penicillin allergy Assessment & Plan: Tolerating ceftaroline so far. Subjective Allergies: Coded Allergies: PENICILLIN G (Verified Allergy, Mild, 12/26/10) Objective Vital Signs Last 24 Hour Vital Signs Date Time Temp Pulse Resp B/P (MAP) Pulse Ox O2 Delivery O2 Flow Rate FiO2 09/04/17 20:45 75 18 99 Nasal Cannula 2.0 28 09/04/17 20:37 Nasal Cannula 2.0 09/04/17 20:37 92 Room Air 09/04/17 20:37 78 16 92 Room Air 09/04/17 17:14 98.2 64 18 156/80 95 Room Air 09/04/17 13:15 Nasal Cannula 09/04/17 13:15 Nasal Cannula 09/04/17 12:00 98.2 74 18 135/74 99 Nasal Cannula 3.0 09/04/17 09:07 139/98 09/04/17 08:00 97.9 77 18 139/77 94 Nasal Cannula 3.0 09/04/17 07:45 68 18 99 Nasal Cannula 2.0 28 09/04/17 07:35 28 09/04/17 07:35 Nasal Cannula 2.0 28 09/04/17 07:35 65 16 96 Nasal Cannula 2.0 09/04/17 07:35 96 Nasal Cannula 2.0 28 09/04/17 05:31 97.6 67 18 142/82 98 Nasal Cannula 3.0 09/04/17 00:26 65 18 98 Nasal Cannula 2.0 28 09/04/17 00:20 21 09/04/17 00:20 62 18 94 Nasal Cannula 2.0 28 09/04/17 00:00 98.2 70 18 144/73 98 Nasal Cannula 3.0 Height (Feet): 5 Height (Inches): 6.00 Weight (Pounds): 142 Microbiology Date/Time Source Procedure Growth Status 10/18/17 07:52 Nose Influenza Types A,B Antigen (CRISPIN) - Final Complete Laboratory Tests Test 09/04/17 05:20 White Blood Count 19.5 K/UL (4.8-10.8) H Red Blood Count 4.08 M/UL (4.70-6.10) L Hemoglobin 13.3 G/DL (14.2-18.0) L Hematocrit 39.4 % (42.0-52.0) L Mean Corpuscular Volume 97 FL (80-99) Mean Corpuscular Hemoglobin 32.5 PG (27.0-31.0) H Mean Corpuscular Hemoglobin Concent 33.6 G/DL (32.0-36.0) Red Cell Distribution Width 12.0 % (11.6-14.8) Platelet Count 250 K/UL (150-450) Mean Platelet Volume 11.1 FL (6.5-10.1) H Neutrophils (%) (Auto) % (45.0-75.0) Lymphocytes (%) (Auto) % (20.0-45.0) Monocytes (%) (Auto) % (1.0-10.0) Eosinophils (%) (Auto) % (0.0-3.0) Basophils (%) (Auto) % (0.0-2.0) Differential Total Cells Counted 100 Neutrophils % (Manual) 80 % (45-75) H Lymphocytes % (Manual) 5 % (20-45) L Monocytes % (Manual) 7 % (1-10) Eosinophils % (Manual) 1 % (0-3) Basophils % (Manual) 0 % (0-2) Band Neutrophils 7 % (0-8) Platelet Estimate Adequate Platelet Morphology Normal Red Blood Cell Morphology Normal Sodium Level 138 MMOL/L (136-145) Potassium Level 4.3 MMOL/L (3.5-5.1) Chloride Level 103 MMOL/L (98-107) Carbon Dioxide Level 23 MMOL/L (21-32) Anion Gap 12 mmol/L (5-15) Blood Urea Nitrogen 31 mg/dL (7-18) H Creatinine 1.9 MG/DL (0.55-1.30) H Estimat Glomerular Filtration Rate mL/min (>60) Glucose Level 170 MG/DL (74-106) H Calcium Level 9.4 MG/DL (8.5-10.1) Current Medications Medications (Trade) Dose Ordered Sig/Reuben Route PRN Reason Start Time Stop Time Status Last Admin Dose Admin Acetaminophen (Tylenol) 650 mg Q4H PRN ORAL T>100.5 09/02/17 16:15 10/01/17 08:14 Albuterol/ Ipratropium (DuoNeb 0.5-3(2.5)mg/3ml) 3 ml Q4H PRN HHN Shortness of Breath 09/02/17 16:15 09/06/17 08:14 Albuterol/ Ipratropium (DuoNeb 0.5-3(2.5)mg/3ml) 3 ml Q6HRT HHN 09/02/17 19:00 09/06/17 12:59 09/04/17 20:37 Aspirin (ASA) 81 mg DAILY ORAL 09/03/17 09:00 10/01/17 08:59 09/04/17 09:07 Azithromycin (Zithromax) 250 mg DAILY ORAL 09/03/17 09:00 09/09/17 08:59 09/04/17 09:07 Aztreonam 1 gm/ Dextrose 55 ml @ 110 mls/hr Q8HR IVPB 09/02/17 22:00 09/08/17 13:59 09/04/17 22:03 Ceftaroline Fosamil 300 mg/ Sodium Chloride 55 ml @ 55 mls/hr Q12H IVPB 09/03/17 00:00 09/08/17 11:59 09/04/17 11:53 Clonidine HCl (Catapres) 0.1 mg Q4H PRN ORAL sbp>170 09/02/17 16:30 10/01/17 16:29 Dextrose (Dextrose 50%) STAT PRN IV Hypoglycemia 09/02/17 16:00 10/02/17 15:59 Heparin Sodium (Porcine) (Heparin 5000 units/ml) 5,000 units EVERY 12 HOURS SUBQ 09/02/17 21:00 10/01/17 08:59 09/04/17 20:56 Insulin Aspart (NovoLOG) BEFORE MEALS AND HS SUBQ 09/02/17 17:00 10/01/17 16:59 09/04/17 17:03 Lisinopril (Zestril) 10 mg DAILY ORAL 09/03/17 09:00 10/03/17 08:59 09/04/17 09:07 Lorazepam (Ativan 2mg/ml 1ml) 2 mg Q2H PRN IV For Anxiety 09/02/17 16:15 09/08/17 08:14 Metronidazole 100 ml @ 100 mls/hr Q8H IVPB 09/02/17 21:00 09/08/17 12:59 09/04/17 20:34 Morphine Sulfate (Morphine Sulfate) 4 mg Q4H PRN IVP Severe Pain (Pain Scale 7-10) 09/02/17 16:15 09/08/17 08:14 Ondansetron HCl (Zofran) 4 mg Q6H PRN IVP Nausea & Vomiting 09/02/17 16:00 10/01/17 15:59 Polyethylene Glycol (Miralax) 17 gm DAILYPRN PRN ORAL Constipation 09/02/17 16:00 10/02/17 15:59 Promethazine HCl/ Codeine (Phenergan with Codeine) 5 ml Q4H PRN ORAL For Cough 09/02/17 16:15 10/01/17 08:14 Sitagliptin Phosphate (Januvia) 50 mg BIAC ORAL 09/02/17 16:30 10/01/17 16:29 09/04/17 17:01 Sodium Chloride 1,000 ml @ 60 mls/hr [id number] IV 09/02/17 17:00 10/01/17 16:59 09/04/17 19:39 YARELIS CLAYTON Sep 04, 2017 23:18
--- NOTE | 2017-09-04 23:33 | Diagnostic Imaging Report ---
APPROVED REPORT CPT Code: 14504 Present Symptoms Shortness of breath BILATERAL: Imaging reveals a patent deep venous system bilaterally. There is no evidence of thrombus within the femoral, popliteal or tibial segments. The greater saphenous veins are also within normal limits. Doppler indicates normal spontaneous flow within these segments.
[2017-09-05] VITALS: BP 141/60
--- NOTE | 2017-09-05 00:30 | Consultation ---
DATE OF CONSULTATION: 09/04/2017 NEPHROLOGY CONSULTATION REFERRING PHYSICIAN: Uche Banegas D.O. REASON FOR CONSULTATION: Acute renal failure on chronic kidney disease. HISTORY OF PRESENT ILLNESS: The patient is a 77-year-old male with past medical history significant for hypertension and diabetes who presented to the emergency room with a two-day worsening of cough and shortness of breath. According to the records here showed that he was also slightly confused and weak and was diagnosed with pneumonia and sepsis. According to the patient, he is sitting comfortably in bed at this time. He did have some cough which he did attribute to be weather but that got increasingly worse which prompted his visit to the emergency room. He denies chest pain. Denies abdominal pain. No nausea, no vomiting at this time. Denies dizziness but stated that he has had shortness of breath. PAST MEDICAL HISTORY: Significant for diabetes and hypertension. HOME MEDICATIONS: Includes aspirin 81 mg p.o. daily, clonidine 0.2 mg p.o. t.i.d., glipizide 10 mg p.o. b.i.d., lisinopril 10 mg p.o. daily, metformin 500 mg p.o. t.i.d., Januvia 50 mg p.o. b.i.d. ALLERGIES: He is allergic to penicillin. SOCIAL HISTORY: He lives at home with family. Denies any smoking, alcohol use, or illicit drug use. FAMILY HISTORY: Noncontributory. REVIEW OF SYSTEMS: A full 12 point review of system was reviewed with the patient and positives as stated in history of present illness. PHYSICAL EXAMINATION: GENERAL: This is a 77-year-old male in no apparent distress, lying in bed. VITAL SIGNS: Blood pressure 156/80, heart rate 64, respiratory rate 18, temperature 98.2, O2 saturation is 95% on room air. HEENT: Head is normocephalic and atraumatic with moist mucous membranes. Pupils are equal, round, and reactive to light and accommodation. NECK: Supple. No JVD noted. LUNGS: Diminished bilaterally. No wheezing. CARDIOVASCULAR: Regular rate and rhythm. ABDOMEN: Soft, nontender, and nondistended. Positive bowel sounds in all 4 quadrants. EXTREMITIES: No edema. No cyanosis. No clubbing. NEUROLOGIC: The patient is awake, alert, and oriented x3 with no focal deficits. LABORATORY DATA: CBC, white count 19.5, hemoglobin 13.3, hematocrit 39.4, and a platelet count of 215. BMP sodium 138, potassium 4.3, chloride 103, bicarb 23, BUN 31, creatinine 1.9, and a blood glucose of 170. RADIOLOGIC FINDING: Renal ultrasound, impression negative for hydronephrosis, incidental finding bilateral renal cysts. Chest x-ray, impression left basilar hazy opacity may reflect atelectasis and/or pleural fluid, acute process otherwise. CT head impression, no acute intracranial abnormalities, global cortical atrophy with periventricular chronic ischemic changes, no significant change from prior exam. ASSESSMENT: 1. Acute renal failure on chronic kidney disease. 2. Pneumonia. 3. Sepsis. 4. Shortness of breath. 5. Renal cysts. 6. Diabetes. 7. Hypertension. 8. Leukocytosis. 9. Congestive heart failure. PLAN: No hydronephrosis noted on renal ultrasound. We will monitor. Continue intravenous fluids. Renal function has improved on current intravenous fluids. We will monitor renal function and make recommendations when necessary. Continue strict glycemic and blood pressure control. Antibiotics per Infectious Disease. O2 therapy as needed. Pain management as needed as well. We will renally dose medications and avoid nephrotoxins. We will monitor the patient's overall response to treatment. Jared Molina M.D. Johanna Perez DR: Rickey JOB#: [id number] CC: [place]
[2017-09-05] MEDS: Albuterol/Ipratropium 3ml neb HHN SCH ×2 (01:38→07:39)
[2017-09-05 04:00] VITALS: BP 120/64
[2017-09-05] MEDS: Aztreonam Inj 1 GM in D5W 55 ML IVPB SCH (05:42)
[2017-09-05] MEDS: NovoLOG Insulin Flexpen SUBQ SCH (06:30)
[2017-09-05] MEDS: sitaGLIPtin 50mg tab ORAL SCH (07:15)
[2017-09-05 07:24] LABS: BASOPHILS % (AUTO) 0.9 % (0.0-2.0); LYMPHOCYTES % (AUTO) 10.2 % (20.0-45.0); MEAN CORPUSCULAR HEMOGLOBIN 32.6 PG (27.0-31.0); MEAN CORPUSCULAR HGB CONC 33.6 G/DL (32.0-36.0); MEAN CORPUSCULAR VOLUME 97 FL (80-99); MEAN PLATELET VOLUME 9.6 FL (6.5-10.1); MONOCYTES % (AUTO) 9.1 % (1.0-10.0); NEUTROPHILS % (AUTO) 77.8 % (45.0-75.0); PLATELET COUNT 219 K/UL (150-450); RED BLOOD COUNT 3.75 M/UL (4.70-6.10); RED CELL DISTRIBUTION WIDTH 12.3 % (11.6-14.8); WHITE BLOOD COUNT 15.1 K/UL (4.8-10.8)
[2017-09-05 08:00] VITALS: BP 144/69
[2017-09-05 09:00] VITALS: BP 144/69
[2017-09-05] MEDS: Aspirin Baby 81mg ORAL SCH (09:00)
[2017-09-05] MEDS: Lisinopril 10mg tab ORAL SCH (09:00)
[2017-09-05] MEDS: Heparin 5000 units/ml inj SUBQ SCH (09:00)
[2017-09-05] MEDS: Azithromycin 250mg tab ORAL SCH (09:00)
[2017-09-05 09:39] LABS: ANION GAP 12 mmol/L (5-15); CARBON DIOXIDE 21 MMOL/L (21-32); CHLORIDE 104 MMOL/L (98-107); POTASSIUM 4.8 MMOL/L (3.5-5.1); SODIUM 137 MMOL/L (136-145)
--- NOTE | 2017-09-05 10:24 | Diagnostic Imaging Report ---
INDICATION: Shortness of breath and abdominal pain TECHNIQUE: No IV contrast, per referring physician request. Patient given oral contrast. Spiral acquisitions obtained through the , abdomen, and pelvis. Multiplanar reconstructions were generated. Total dose length product 97 mGycm. CTDIvol(s) 15 mGy. Radiation dose was minimized using automated exposure control COMPARISON: None FINDINGS Chest: 2 mm nodule is seen in the right upper lobe, image 28 series 5. 3 mm noncalcified nodule seen in the inferior right upper lobe, image 49 series 5. Irregular 5 mm noncalcified nodule seen in the right lower lobe, image 56 of series 5. Pleural-based possibly calcified nodules are seen adjacent to the major fissure on the right. 5 mm noncalcified nodule seen in the right lower lobe, image 64 series. Calcified nodules in the right costophrenic sulcus. There is trace right pleural fluid. The right lung is otherwise clear. The left lung demonstrates a small to moderate pleural effusion. There is considerable compressive atelectasis of much of the left lower lobe. Fluffy opacities are seen in the left upper lobe, probably perihilar distribution. The heart size is normal. There is no evidence of pericardial effusion. The ascending thoracic aorta is ectatic but not quite aneurysmal, measuring 4.1 cm in diameter. No mediastinal or hilar mass or adenopathy demonstrated. The included thyroid is unremarkable. No axillary or chest wall mass or adenopathy. There is bilateral mild gynecomastia, right greater than left. The bones are unremarkable except for degenerative thoracic spondylosis changes. Unremarkable esophagus. Abdomen pelvis: Normal appendix. No evidence of diverticulosis or diverticulitis. The entirety the small bowel is seen as far distally as the hepatic flexure the colon. No small bowel distention or small bowel wall thickening. No free or loculated intraperitoneal air or fluid. The stomach and duodenum are unremarkable. There is considerable stool within the ascending colon which is mildly distended by stool to the level of the proximal transverse colon. Lack of IV contrast limits assessment of the solid organs. The liver is grossly unremarkable. The gallbladder is nondistended. The pancreas is unremarkable. The spleen is not demonstrated. Small nodules in the left upper quadrant with calcifications may reflect some residual splenic tissue. The adrenals are unremarkable. The right kidney demonstrates a 12 mm round upper pole mass of indeterminate density, 67 Hounsfield units, dislocated. 4 hyperdense cyst. It also demonstrates a 12 mm cyst in the interpolar region. There is nonspecific fat stranding of both kidneys. No retroperitoneal mass or adenopathy. No pelvic mass or adenopathy. The prostate is somewhat enlarged, contains metallic foreign bodies, likely radioactive seeds. Surgical hardware seen in the left hip. The bones are otherwise remarkable for degenerative spondylosis changes and mild rotatory scoliotic deformity. IMPRESSION: Small to moderate left pleural effusion. Compressive atelectasis other significant portion of the left lower lobe Fluffy and groundglass opacities in the left upper lobe perihilar region. Nonspecific, could reflect edema, pneumonia, or noninfectious inflammatory process Multiple right lung nodules. No further followup necessary if there is no significant smoking history or other risk factors for lung carcinoma. If there are risk factors, then short interval followup at 6-12 months recommended per Fleischner criteria Trace right pleural effusion No definite acute abdominal process Evidence of constipation, with stool distending the right colon Nonvisualized spleen. Small nodules in the left upper quadrant may reflect residual splenic tissue. Correlate with any history of prior trauma or surgery Right renal upper pole lesion of indeterminate density, not quite hyperdense but probably a proteinaceous c -- yst. Further evaluation with ultrasound recommended are there is also a right renal interpolar region cyst which is also described in prior sonogram of 2013 Evidence of prior radioactive seed placement in the prostate. The prostate is enlarged Nonspecific bilateral perinephric fat stranding. Acute inflammation not excludable. Correlate with clinical findings Incidental findings as noted, including evidence of prior left hip surgery, degenerative spondylosis, rotatory scoliotic deformity, bilateral gynecomastia, degenerative spondylosis The CT scanner at [facility] is accredited by the [employer] and the scans are performed using protocols designed to limit radiation exposure to as low as reasonably achievable to attain images of sufficient resolution adequate for diagnostic evaluation.
[2017-09-05] MEDS ORDERED: 1/2 NS 1000ml IV ONE (11:24)
--- NOTE | 2017-09-05 22:29 | Pulmonology Progress Note ---
Assessment/Plan Problems: (1) Sepsis (2) Encephalopathy acute (3) Diabetes (4) Hypoxia (5) HTN (hypertension) Assessment/Plan improving check cultures continue abx titrate fio2 to sat of 92% pt/ot dcd planning Subjective ROS Limited/Unobtainable: No Constitutional: Reports: no symptoms HEENT: Repors: no symptoms Respiratory: Reports: no symptoms Allergies: Coded Allergies: PENICILLIN G (Verified Allergy, Mild, 12/26/10) Objective Last 24 Hour Vital Signs Date Time Temp Pulse Resp B/P (MAP) Pulse Ox O2 Delivery O2 Flow Rate FiO2 09/05/17 09:00 144/69 09/05/17 08:00 97.8 58 18 144/69 96 Room Air 09/05/17 07:47 71 16 96 Room Air 21 09/05/17 07:41 95 Room Air 21 09/05/17 07:41 Room Air 21 09/05/17 07:39 74 16 95 Room Air 21 09/05/17 04:00 98.4 60 20 120/64 98 Room Air 09/05/17 01:47 65 16 97 Nasal Cannula 2.0 28 09/05/17 01:38 69 16 94 Nasal Cannula 2.0 28 09/05/17 00:00 98.1 68 20 141/60 96 Room Air General Appearance: WD/WN, no acute distress Cardiovascular: no JVD Abdomen: normal bowel sounds Extremities: no cyanosis, no clubbing Neurologic/Psychiatric: abnormal gait Microbiology Date/Time Source Procedure Growth Status 09/04/17 07:52 Nose Influenza Types A,B Antigen (CRISPIN) - Final Complete Laboratory Tests 09/05/17 06:35: White Blood Count 15.1H, Red Blood Count 3.75L, Hemoglobin 12.2L, Hematocrit 36.4L, Mean Corpuscular Volume 97, Mean Corpuscular Hemoglobin 32.6H, Mean Corpuscular Hemoglobin Concent 33.6, Red Cell Distribution Width 12.3, Platelet Count 219, Mean Platelet Volume 9.6, Neutrophils (%) (Auto) 77.8H, Lymphocytes ( %) (Auto) 10.2L, Monocytes (%) (Auto) 9.1, Eosinophils (%) (Auto) 2.0, Basophils (%) (Auto) 0.9, Sodium Level 137, Potassium Level 4.8, Chloride Level 104, Carbon Dioxide Level 21, Anion Gap 12, Blood Urea Nitrogen 34H, Creatinine 2.0H, Estimat Glomerular Filtration Rate , Glucose Level 200H, Calcium Level 9.0 DIANE DEVINE Sep 05, 2017 22:29
--- NOTE | 2017-09-06 10:34 | Discharge Summary ---
Discharge Summary Hospital Course Date of Admission Sep 01, 2017 at 08:36 Date of Discharge Sep 05, 2017 at 11:25 Admitting Diagnosis Severe dizziness, vomiting HPI Yoan Montoya is a 77 year old male who was admitted on Sep 01, 2017 at 08:36 for Severe Dizziness,Vomiting Hospital Course [id number] Discharge Discharge Disposition Patient left AMA Discharge Diagnoses: Abiola Aguirre NP Sep 06, 2017 10:34
--- NOTE | 2017-09-06 16:15 | Discharge Summary 2 SIG ---
DATE OF ADMISSION: 09/01/2017 DATE OF DISCHARGE: 09/05/2017 CONSULTANTS: 1. Maliha Will M.D. 2. Jared Molina M.D. 3. Maggi Sands M.D. BRIEF HOSPITAL COURSE: The patient is a 77-year-old male, who lives at home presented with two-day increased cough and shortness of breath. On evaluation at ED, blood work showed leukocytosis, WBC was 16. Chest x-ray done did not show any obvious large infiltrate, however, clinically the patient presented with sepsis and pneumonia. He was found to be hypoxemic with fever and leukocytosis. EKG done showed no acute ischemic changes. CT of the head showed no acute intracranial pathology. Creatinine was 2.3 and BUN was 42. The patient was admitted to medical floor for further evaluation. The patient continued with respiratory distress and was desaturating. He was placed on 100% nonrebreather mask and was subsequently transferred to [facility]. He was started on ceftaroline, aztreonam and Flagyl. He was pancultured. Influenza A and B was negative. Sputum culture did not isolate any growth. He had penicillin allergy but was tolerating ceftaroline. He was seen by Dr. Ramos for evaluation of dyspnea. The patient has risk factors for coronary artery disease including diabetes and hypertension. Dyspnea was assessed to be likely due to pneumonia. He had elevated renal function. Renal ultrasound was negative for hydronephrosis with incidental findings of bilateral renal cyst. He was given IV fluid and renal function improved. He was eventually downgraded back to Med/Surg. O2 saturation improved even with room air. CT of the chest, abdomen and pelvis showed a small to moderate left pleural effusion and multiple right lung nodules. There was no acute definite abdominal process. Full treatment was not carried out as he signed AMA. FINAL DIAGNOSES: 1. Sepsis probably due to pneumonia. 2. Pneumonia. 3. Acute on chronic renal failure. 4. Acute metabolic encephalopathy. 5. Diabetes. 6. Hypertension. 7. Renal cyst. 8. Multiple lung nodules. 9. Likely aspiration pneumonia. 10. Acute hypoxemic respiratory failure requiring nonrebreather mask. 11. Dizziness. DISPOSITION: AMA Uche Banegas D.O. I have been assigned to dictate discharge summary on this account and I was not involved in the patient's management. Abiola Aguirre N.P. DR: ELHAM JOB#: [id number] CC: [place]
--- NOTE | 2017-09-10 08:15 | Cardiology Report ---
APPROVED REPORT EXAM: Two-dimensional and M-mode echocardiogram with Doppler and color Doppler. INDICATION Shortness of breath M-Mode DIMENSIONS IVSd1.0 (0.7-1.1cm)Left Atrium (MM)3.9 (1.6-4.0cm) LVDd4.8 (3.5-5.6cm)Aortic Root2.6 (2.0-3.7cm) PWd0.8 (0.7-1.1cm)Aortic Cusp Exc.1.8 (1.5-2.0cm) LVDs2.3 (2.5-4.0cm) PWs2.1 cm Normal left ventricular chamber size, systolic function and wall motion. Left ventricular ejection fraction estimated to be 60 %. No evidence of left ventricular hypertrophy. Anterior Echo-free space, may be due to pericardial fat or effusion. All other cardiac chamber sizes are within normal limits. Mild focal aortic valve sclerosis with adequate cusp excursion. Mildly thickened mitral valve leaflets with normal excursion. Mild mitral annulus and aortic root calcification. Pulmonic valve not well visualized. Normal tricuspid valve structure. IVC dilated at 2.2 cm with physiologic collapse, estimated RAP is 10 mmHg. A color flow and spectral Doppler study was performed and revealed: Mild aortic regurgitation. Mild to moderate mitral regurgitation. reduced left ventricular relaxation. Trace tricuspid regurgitation. Tricuspid systolic velocities suggests peak right ventricular systolic pressure of 43 mmHg, consistent with mild pulmonary hypertension. Trace pulmonic regurgitation present.
--- NOTE | 2017-09-10 08:25 | Cardiology Report ---
APPROVED REPORT EKG Measurement Heart [id number] Sinus tachycardia Nonspecific ST and T wave abnormality Abnormal ECG
--- NOTE | 2017-09-10 14:22 | Diagnostic Imaging Report ---
Indications: DYSPHAGIA Technique: Patient ingested multiple substances under the supervision of speech pathology. Video fluoroscopic recording performed. Total fluoroscopy time 155 seconds. Total dose area product 0.27415 mGycm2 Comparison: none Findings: Multiple episodes trace supraglottic laryngeal penetration demonstrated with thin liquid barium. Ingestion of nectar thick, honey thick, barium pur?e, barium-soaked solid is uneventful. Impression: Positive for penetration of thin liquid barium Negative for evidence of aspiration Please refer to speech pathology report for more detailed analysis.
== END 2017-09-05 11:25 | disposition left against medical advice (07) | DRG 871 ==
LOC: EMR 06:30 → EDBEDREQ 08:01 → 4E 08:36 → ICU 10:45 → 2E 13:07 → 3E 09-02 15:55
DX: A41.9 Sepsis, unspecified organism (principal); J96.01 Acute respiratory failure with hypoxia; J69.0 Pneumonitis due to inhalation of food and vomit; G93.41 Metabolic encephalopathy; N17.9 Acute kidney failure, unspecified; Z88.0 Allergy status to penicillin; I12.9 Hypertensive chronic kidney disease with stage 1 through stage 4 chronic kidney disease, or unspecified chronic kidney disease; E11.22 Type 2 diabetes mellitus with diabetic chronic kidney disease; N18.9 Chronic kidney disease, unspecified; N28.1 Cyst of kidney, acquired; R42 Dizziness and giddiness
CPT/HCPCS: 36415; 36600; 70450; 71010; 71250; 74176; 74230; 76775; 80048; 80053; 80061; 80069; 81001; 81003; 82550; 82553; 82803; 82962; 83036; 83605; 83880; 84133; 84300; 84443; 84484; 84550; 85007; 85025; 85610; 85730; 86710; 87040; 87070; 87205; 89050; 93005; 93306; 93970; 94640; 94664; 94760; 97803; 99285; J1815; J7620

== ENCOUNTER 2018-01-18 20:32 | Emergency (ER) | payer MEDICARE, OTHER ==
[~2018-01-18] VITALS: Ht 175.3 cm; Wt 77.1 kg
[~2018-01-18 20:32] MED LIST changes: +GLIPIZIDE XL10 MG ORAL; +JANUVIA50 MG ORAL
[2018-01-18 20:45] VITALS: BP 188/88
[2018-01-18] MEDS ORDERED: Tylenol #3 tab (300mg/30mg) PO ONE (20:45)
[2018-01-18 21:30] VITALS: BP 176/82
[2018-01-18] MEDS ORDERED: Morphine Sulfate 2mg/ml Inj IVP ONE (22:15)
[2018-01-18 22:30] VITALS: BP 180/92
[2018-01-18 23:13] LABS: EOSINOPHILS % (AUTO) 3.9 % (0.0-3.0); HEMATOCRIT 37.6 % (42.0-52.0); HEMOGLOBIN 12.6 G/DL (14.2-18.0); LYMPHOCYTES % (AUTO) 10.5 % (20.0-45.0); MEAN CORPUSCULAR VOLUME 98 FL (80-99); MONOCYTES % (AUTO) 5.7 % (1.0-10.0); NEUTROPHILS % (AUTO) 78.9 % (45.0-75.0); PLATELET COUNT 138 K/UL (150-450); RED BLOOD COUNT 3.85 M/UL (4.70-6.10); RED CELL DISTRIBUTION WIDTH 13.4 % (11.6-14.8); WHITE BLOOD COUNT 8.8 K/UL (4.8-10.8)
[2018-01-18 23:21] LABS: INR 1.1 (0.9-1.1)
[2018-01-18 23:24] LABS: ANION GAP 5 mmol/L (5-15); BLOOD UREA NITROGEN 46 mg/dL (7-18); CARBON DIOXIDE 29 MMOL/L (21-32); CHLORIDE 100 MMOL/L (98-107); CREATININE 1.9 MG/DL (0.55-1.30); SODIUM 134 MMOL/L (136-145)
[2018-01-18 23:29] LABS: ALANINE AMINOTRANSFERASE 66 U/L (12-78); ALBUMIN 3.7 G/DL (3.4-5.0); ALKALINE PHOSPHATASE 112 U/L (46-116); ASPARTATE AMINO TRANSFERASE 76 U/L (15-37); BILIRUBIN,TOTAL 0.2 MG/DL (0.2-1.0); CREATINE KINASE 82 U/L (26-308)
[2018-01-18 23:30] VITALS: BP 177/83
[2018-01-19] MEDS ORDERED: NORCO 5-325 TA1 EACH ORAL (00:04)
[2018-01-19 00:28] VITALS: BP 177/83
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
--- NOTE | 2018-01-19 11:47 | Diagnostic Imaging Report ---
Indication: Pain 3 views of the left knee were obtained. 2 views of the left femur obtained. Findings: There is an acute comminuted fracture involving the lateral tibial plateau with displacement of part of the plateau laterally. There is moderate depression of the plateau. Comminuted fracture of the fibular head and neck also noted. Fat fluid level demonstrated within the joint space. 2 views of the femur demonstrate a left dynamic hip screw. 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 Radiation implants noted within the prostate gland. There is generalized osteopenia. IMPRESSION: Acute fracture as described above. Lipohemarthrosis
--- NOTE | 2018-01-21 16:08 | Cardiology Report ---
APPROVED REPORT EKG Measurement Heart [id number] [place] [id number] [id number] Sinus bradycardia Otherwise normal ECG
== END 2018-01-19 00:28 | disposition left against medical advice (07) ==
LOC: EDBD 20:32 → EMR 21:10
DX: S82.142A Displaced bicondylar fracture of left tibia, initial encounter for closed fracture (principal); S82.452A Displaced comminuted fracture of shaft of left fibula, initial encounter for closed fracture; V03.99XA Pedestrian with other conveyance injured in collision with car, pick-up truck or van, unspecified whether traffic or nontraffic accident, initial encounter; Y92.414 Local residential or business street as the place of occurrence of the external cause; E11.9 Type 2 diabetes mellitus without complications; I10 Essential (primary) hypertension; Z88.0 Allergy status to penicillin; M85.88 Other specified disorders of bone density and structure, other site
CPT/HCPCS: 36415; 73552; 73562; 80053; 82550; 85025; 85610; 86850; 86900; 86901; 93005; 96374; 96375; 99284; J2270; J2405; 29530